=== PATIENT | female | born 1995 | race African-American/Black ===

== ENCOUNTER → 2017-09-28 07:32 | Outpatient (CLI) | payer OTHER, SELFPAY ==
[2017-09-28 08:27] LABS: Hematocrit 38.7 % (37-47); Hemoglobin 12.8 g/dl (12.0-15.0); Mean Corp Hgb Conc 33.1 g/gl (32-36); Mean Corpuscular Hgb 30.3 pg (27.0-32.0); Mean Corpuscular Volume 91.7 fL (81-99); Mean Platelet Vol. 11.2 fl (6.2-12.0); Platelet Count 304 K/mm3 (150-450); RBC Distribution Width CV 12.6 % (11.6-14.6); RBC Distribution Width SD 42.3 fl (35.1-43.9); Red Blood Count 4.22 M/mm3 (4.2-5.4); White Blood Count 8.1 K/mm3 (4.4-11.0)
[2017-09-28 08:28] LABS: Scan Indicated on CBC? Y/N NO
[2017-09-28 08:57] LABS: Hemoglobin A1c 5.6 % (4.2-6.3)
[2017-09-28 09:00] LABS: Glucose 75GTT - Fasting 98 mg/dL (70-99)
[2017-09-28 09:00] LABS: Glucose 75GTT - 30 minutes 149 mg/dL (100-160)
[2017-09-28 10:17] LABS: Glucose 75GTT - 60 minutes 147 mg/dL (100-160)
[2017-09-28 10:53] LABS: Glucose 75GTT - 120 minutes 106 mg/dL (70-140)
[2017-09-28 11:18] LABS: ALB/GLOB Ratio 0.8 RATIO (0.9-2.4); AST(SGOT) 15 U/L (15-37); Alanine Aminotransfer ALT/SGPT 25 U/L (13-56); Albumin, Serum 3.7 g/dL (3.2-5.0); Alkaline Phosphatase 99 U/L (45-117); Anion Gap 7 (5-15); BUN 12 mg/dL (7-18); BUN/Creat Ratio 13.5 RATIO (10-20); Calcium,Total 8.8 mg/dL (8.5-10.1); Chloride 106 mmol/L (98-107); Creatinine, Serum 0.89 mg/dL (0.55-1.02); EST Glomerular Filtration Rate 83 mL/min (>60); Est Glom Filt Rate - Afr Amer 100 mL/min (>60); Estradiol 34.6 pg/mL; Follicle Stimulating Hormone 5.8 mIU/mL; Free T3 3.4 pg/mL (2.18-3.98); Globulin 4.4 g/dL (2.2-4.2); Glucose 96 mg/dL (74-106); Potassium 3.9 mmol/L (3.5-5.1); Prolactin 16.4 ng/mL; Protein, Total 8.1 g/dL (6.4-8.2); Sodium Level 140 mmol/L (136-145); T4 Free Direct 1.04 ng/dL (0.76-1.46); Thyroid Stim Hormone (TSH) 2.97 uIU/mL (0.358-3.74)
[2017-09-29 05:08] LABS: DHEA Sulfate 238.9 ug/dL (110.0-431.7)
[2017-09-29 10:09] LABS: Progesterone Level 0.47 ng/mL (See Comment); Vitamin D,25 Hydroxy 27.2 ng/mL (29.95-100.01)
[2017-09-29 11:53] LABS: Sex Hormone-binding Globulin 19.6 nmol/L (24.6-122.0)
[2017-09-29 12:07] LABS: Insulin 75GTT - Fasting 19.5 mU/L (2.6-37.6)
[2017-09-29 12:08] LABS: Insulin 75GTT - 30 MIN 128.6 mU/L (Not Estab.)
[2017-09-29 12:08] LABS: Insulin 75GTT - 120 min 92.2 mU/L (Not Estab.)
[2017-10-01 08:04] LABS: 17-Hydroxyprogesterone 40 ng/dL (.)
[2017-10-02 14:07] LABS: Thyroid Peroxidase AB 12 IU/mL (0-34)
[2017-10-02 14:52] LABS: Thyroglobulin Antibody < 1.0 IU/mL (0.0-0.9)
== END ==
PROVIDERS: Visit Provider Obstetrics & Gynecology
DX: N97.0 Female infertility associated with anovulation (principal); N92.1 Excessive and frequent menstruation with irregular cycle
CPT/HCPCS: 36415; 80053; 82306; 82533; 82627; 82670; 82951; 82952; 83001; 83036; 83498; 83525; 84144; 84146; 84270; 84403; 84439; 84443; 84481; 85027; 86376; 86800; 82626

== ENCOUNTER → 2017-10-05 08:00 | Outpatient (CLI) | payer OTHER, SELFPAY ==
--- NOTE | 2017-10-05 08:03 | US_ITS ---
STUDY: ULTRASOUND OF THE FEMALE PELVIS - COMPLETE REASON FOR EXAM: Female, 22 years old. Irregular menstrual cycles. LMP: September 03, 2017. TECHNIQUE: Transabdominal and Transvaginal TECHNICAL QUALITY: Adequate. COMPARISON: None. FINDINGS: The uterus is anteverted and is tilted to the left side of the pelvis. The uterus measures 7.0 cm x 4.0 cm x 3.6 cm. Normal uterine cervix. The endometrium measures 10.0 mm in thickness, and is hyperechoic. There is no demonstrated endometrial mass. There is a 2.6 cm x 2.1 cm x 1.1 cm fundal fibroid. I.U.D. - The patient does not have an I.U.D. The right ovary is visualized. The right ovary measures 2.9 cm x 2.3 cm x 2.1 cm. There is no right ovarian cyst or ovarian mass. There is no visualized right adnexal mass or complex lesion. There is normal arterial and normal venous vascularity. The left ovary is visualized. The left ovary measures 4.0 cm x 3.0 cm x 2.5 cm. There is no left ovarian cyst or ovarian mass. There is no visualized left adnexal mass or complex lesion. There is normal arterial and normal venous vascularity. There is no fluid in the cul-de-sac. Polycystic ovary disease: No. US/Pelvic (Non ) IMPRESSION: 2.6 x 2.1 cm x 1.1 cm fundal fibroid. Electronically Signed: Amilcar Zuniga MD at 9:55 EDT Tel [phone], Service support ,
== END ==
PROVIDERS: Visit Provider Obstetrics & Gynecology
DX: N92.1 Excessive and frequent menstruation with irregular cycle (principal)
CPT/HCPCS: 76856; 93976

== ENCOUNTER → 2019-07-30 | Outpatient (CLI) | payer OTHER, SELFPAY ==
[2019-07-30 08:34] VITALS: BMI 36.8
[2019-08-02 16:49] LABS: HPV Reflexed? NOT INDICATED
== END | disposition home or self-care (01) ==
LOC: LABSPEC 15:32
PROVIDERS: Referring Provider Nurse Practitioner Women's Health; Visit Provider Nurse Practitioner Women's Health
DX: Z12.4 Encounter for screening for malignant neoplasm of cervix (principal)
CPT/HCPCS: 88175; G0145

== ENCOUNTER → 2019-08-28 | Outpatient (CLI) | payer OTHER, SELFPAY ==
[2019-07-30 08:34] VITALS: BMI 36.8
[2019-08-28 09:42] LABS: Estradiol 25.1 pg/mL; Prolactin 16.8 ng/mL; Thyroid Stim Hormone (TSH) 2.79 uIU/mL (0.358-3.74)
== END | disposition home or self-care (01) ==
LOC: PAVLAB 08:51
PROVIDERS: Referring Provider Nurse Practitioner Women's Health; Visit Provider Nurse Practitioner Women's Health
DX: N92.6 Irregular menstruation, unspecified (principal)
CPT/HCPCS: 36415; 82670; 84146; 84443

== ENCOUNTER → 2019-09-15 | Outpatient (CLI) | payer OTHER, SELFPAY ==
[2019-07-30 08:34] VITALS: BMI 36.8
[2019-09-16 09:55] LABS: Progesterone Level 0.55 ng/mL (See Comment)
== END | disposition home or self-care (01) ==
LOC: LAB 10:37
PROVIDERS: Visit Provider Nurse Practitioner Women's Health
DX: N92.6 Irregular menstruation, unspecified (principal)
CPT/HCPCS: 36415; 84144

== ENCOUNTER → 2019-09-17 | Outpatient (CLI) | payer OTHER, SELFPAY ==
[2019-07-30 08:34] VITALS: BMI 36.8
--- NOTE | 2019-09-17 13:50 | US_ITS ---
STUDY: ULTRASOUND OF THE FEMALE PELVIS - COMPLETE REASON FOR EXAM: Female, 24 years old. IRREGULAR MENSES FREQ AND DURATION LMP: August 23, 2019 TECHNIQUE: Transabdominal and Transvaginal TECHNICAL QUALITY: Adequate. COMPARISON: Comparison is made with prior study dated October 05, 2017. FINDINGS: The uterus is anteverted and is in a midline position. The uterus measures 7.2 cm x 3.8 cm x 3.6 cm. There is a Nabothian cyst of the cervix. The endometrium measures 6.8 mm in thickness, and is hyperechoic. There is no demonstrated endometrial mass. There is no demonstrated myometrial mass. I.U.D. - The patient does not have an I.U.D. The right ovary is visualized. The right ovary measures 2.9 cm x 3.1 cm x 3.3 cm. There is no right ovarian cyst or ovarian mass. There is no visualized right adnexal mass or complex lesion. There is normal arterial and normal venous vascularity. The left ovary is visualized. The left ovary measures 2.7 cm x 2.3 cm x 2.0 cm. There is no left ovarian cyst or ovarian mass. There is no visualized left adnexal mass or complex lesion. There is normal arterial and normal venous vascularity. There is no fluid in the cul-de-sac. The pre void volume of the bladder was 592 ml. Polycystic ovary disease: No. US/Pelvic (Non ) IMPRESSION: Normal female pelvis. Electronically Signed: Amilcar Zuniga, at 15:42 EDT , Service support ,
--- NOTE | 2019-09-17 13:50 | US_ITS ---
STUDY: ULTRASOUND OF THE FEMALE PELVIS - COMPLETE REASON FOR EXAM: Female, 24 years old. IRREGULAR MENSES FREQ AND DURATION LMP: August 23, 2019 TECHNIQUE: Transabdominal and Transvaginal TECHNICAL QUALITY: Adequate. COMPARISON: Comparison is made with prior study dated October 05, 2017. FINDINGS: The uterus is anteverted and is in a midline position. The uterus measures 7.2 cm x 3.8 cm x 3.6 cm. There is a Nabothian cyst of the cervix. The endometrium measures 6.8 mm in thickness, and is hyperechoic. There is no demonstrated endometrial mass. There is no demonstrated myometrial mass. I.U.D. - The patient does not have an I.U.D. The right ovary is visualized. The right ovary measures 2.9 cm x 3.1 cm x 3.3 cm. There is no right ovarian cyst or ovarian mass. There is no visualized right adnexal mass or complex lesion. There is normal arterial and normal venous vascularity. The left ovary is visualized. The left ovary measures 2.7 cm x 2.3 cm x 2.0 cm. There is no left ovarian cyst or ovarian mass. There is no visualized left adnexal mass or complex lesion. There is normal arterial and normal venous vascularity. There is no fluid in the cul-de-sac. The pre void volume of the bladder was 592 ml. Polycystic ovary disease: No. US/Transvaginal Non- IMPRESSION: Normal female pelvis. Electronically Signed: Amilcar Zuniga, at 15:42 EDT , Service support ,
== END | disposition home or self-care (01) ==
LOC: OPUS 13:50
PROVIDERS: Referring Provider Nurse Practitioner Women's Health; Visit Provider Nurse Practitioner Women's Health
DX: N92.6 Irregular menstruation, unspecified (principal); Z86.018 Personal history of other benign neoplasm
CPT/HCPCS: 76830; 76856

== ENCOUNTER → 2019-12-02 | Outpatient (CLI) | payer OTHER, SELFPAY ==
[2019-07-30 08:34] VITALS: BMI 36.8
== END | disposition home or self-care (01) ==
LOC: PAVLAB 08:40
PROVIDERS: Referring Provider Nurse Practitioner Women's Health; Visit Provider Nurse Practitioner Women's Health
DX: N91.2 Amenorrhea, unspecified (principal)
CPT/HCPCS: 36415; 84144

== ENCOUNTER → 2020-01-06 | Outpatient (CLI) | payer OTHER, SELFPAY ==
[2019-07-30 08:34] VITALS: BMI 36.8
== END | disposition home or self-care (01) ==
LOC: PAVLAB 08:20
PROVIDERS: Referring Provider Nurse Practitioner Women's Health; Visit Provider Nurse Practitioner Women's Health
DX: N92.6 Irregular menstruation, unspecified (principal)
CPT/HCPCS: 36415; 84144

== ENCOUNTER → 2020-01-15 12:07 | Outpatient (CLI) | payer OTHER, SELFPAY ==
[2019-07-30 08:34] VITALS: BMI 36.8
[2020-01-15 13:06] LABS: hCG Titer Quant., Serum 46 mIU/mL (1-3)
== END ==
PROVIDERS: Referring Provider Obstetrics & Gynecology; Visit Provider Obstetrics & Gynecology
DX: N92.1 Excessive and frequent menstruation with irregular cycle (principal)
CPT/HCPCS: 36415; 84702

== ENCOUNTER → 2020-01-17 | Outpatient (CLI) | payer OTHER, SELFPAY ==
[2019-07-30 08:34] VITALS: BMI 36.8
[2020-01-17 13:35] LABS: hCG Titer Quant., Serum 121 mIU/mL (1-3)
== END | disposition home or self-care (01) ==
PROVIDERS: Referring Provider Obstetrics & Gynecology; Visit Provider Obstetrics & Gynecology
DX: N91.2 Amenorrhea, unspecified (principal)
CPT/HCPCS: 36415; 84702

== ENCOUNTER → 2020-01-20 | Outpatient (CLI) | payer OTHER, SELFPAY ==
[2019-07-30 08:34] VITALS: BMI 36.8
[2020-01-20 10:17] LABS: hCG Titer Quant., Serum 533 mIU/mL (1-3)
== END | disposition home or self-care (01) ==
LOC: PAVLAB 09:10
PROVIDERS: Referring Provider Obstetrics & Gynecology; Visit Provider Obstetrics & Gynecology
DX: N91.2 Amenorrhea, unspecified (principal)
CPT/HCPCS: 36415; 84702

== ENCOUNTER 2020-10-15 14:17 | Inpatient (IN) | payer OTHER, SELFPAY ==
[2019-07-30 08:34] VITALS: BMI 36.8
[2020-10-15] VITALS (57 sets, daily range): BP systolic 96–187; BP diastolic 44–107; PULSE 99–124; RESP 16–18; TEMP 37.1–38.8; O2SAT 80–100; BMI 41.9
[2020-10-15] MEDS: Lactated Ringers 1,000 ML 50 ML IV (14:25)
[2020-10-15 14:48] LABS: Absolute Lymphocyte Count 1.62 X10^3/uL (0.83-4.51); Absolute Neutrophil Count 11.9 X10^3/uL (2.0-7.7); Basophil# 0.04 X10^3/uL; Basophil% 0.3 % (0-1); Eosinophil# 0.05 X10^3/uL; Eosinophils% 0.3 % (0-5); Hematocrit 42.1 % (37-47); Hemoglobin 14.6 g/dL (12.0-15.0); Lymphocyte # 1.62 X10^3/ul (0.83-4.51); Mean Corp Hgb Conc 34.7 g/dL (32-36); Mean Corpuscular Hgb 31.5 pg (27.0-32.0); Mean Corpuscular Volume 90.7 fL (81-99); Mean Platelet Vol. 11.8 fl (6.2-12.0); Monocyte# 1.04 X10^3/uL; Monocyte% 7.1 % (0-10); NRBC Flagged by Analyzer 0 % (0-5); Neutrophil # 11.88 X10^3/uL (2.7-7.7); Neutrophil % 80.6 % (47-70); Platelet Count 279 K/mm3 (150-450); RBC Distribution Width CV 12.1 % (11.6-14.6); RBC Distribution Width SD 39.9 fl (35.1-43.9); Red Blood Count 4.64 M/mm3 (4.2-5.4); White Blood Count 14.7 K/mm3 (4.4-11.0)
[2020-10-15 15:50] LABS: Mucous, Urine 0 SEEN /hpf (<or=2+); Red Blood Cells-Urine 0 SEEN /hpf (0-5); Squamous Epithelial Cells - UA 0 SEEN /hpf (5-10)
[2020-10-15 16:03] LABS: Color, Urine Yellow (Yellow); Glucose, Dipstick Normal (Normal); Ketone-Dipstick 5 mg/dl (Negative); Leukocyte Esterase-Dipstick 500 /ul (Negative); Nitrite-Dipstick Negative (Negative); Occult Blood-Urine 25 /ul (Negative); Protein-Dipstick Negative (Negative); Specific Gravity, Urine 1.015 (1.002-1.030); Urine Bilirubin Dipstick Negative (Negative); Urine Clarity Sl. Cloudy (Clear); Urine Urobilinogen Normal (Normal)
[2020-10-15 16:09] LABS: Bacteria RARE /hpf (None Seen); White Blood Cells 0-5 SEEN /hpf (0-5)
[2020-10-15 16:09] LABS: Fibrinogen 641 mg/dl (203-444)
[2020-10-15 16:42] LABS: Amphetamine Urine VISTA NEGATIVE (<1000 ng/mL); Barbiturate Urine VISTA NEGATIVE (< 200 ng/mL); Benzodiazepine Urine VISTA NEGATIVE (< 200 ng/mL); Cocaine Urine VISTA NEGATIVE (< 300 ng/mL); Ecstacy Urine VISTA NEGATIVE (< 500 ng/mL); Methadone Urine VISTA NEGATIVE (< 300 ng/mL); PCP Urine VISTA NEGATIVE (< 25 ng/mL); THC Urine VISTA NEGATIVE (< 50 ng/mL); Vista UDS pH Range 7
[2020-10-15 16:42] LABS: ALB/GLOB Ratio 0.6 RATIO (0.9-2.4); AST(SGOT) 18 U/L (15-37); Alanine Aminotransfer ALT/SGPT 13 U/L (13-56); Albumin, Serum 2.9 g/dL (3.2-5.0); Alkaline Phosphatase 171 U/L (45-117); Anion Gap 9 (5-15); BUN 6 mg/dL (7-18); BUN/Creat Ratio 9.4 RATIO (10-20); Calcium,Total 9.5 mg/dL (8.5-10.1); Chloride 106 mmol/L (98-107); Creatinine, Serum 0.64 mg/dL (0.55-1.02); EST Glomerular Filtration Rate 119 mL/min (>60); Est Glom Filt Rate - Afr Amer 144 mL/min (>60); Estimated Creatinine Clearance 123.61 ml/min; Globulin 4.9 g/dL (2.2-4.2); Glucose 85 mg/dL (74-106); Protein, Total 7.8 g/dL (6.4-8.2); Sodium Level 135 mmol/L (136-145); Thyroid Stim Hormone (TSH) 1.81 uIU/mL (0.358-3.74)
[2020-10-15 17:03] LABS: Group B Strep DNA By PCR Negative (Negative); Internal Control PASS; Probe Check PASS; Specimen Processing Control PASS
[2020-10-15 17:16] LABS: Rubella IgG Reactive (Nonreactive); Syphilis Antibodies Non-reactive
[2020-10-15 17:19] LABS: Hemoglobin A1c 5.6 % (3.8-5.6)
[2020-10-15 17:35] LABS: HIV - WCH Non-Reactive (Nonreactive); Hepatitis B Surface Antigen Non-Reactive (Nonreactive); Hepatitis C Antibody Non-Reactive (Nonreactive); Syphilis Antibodies Non-reactive
--- NOTE | 2020-10-15 17:40 | HP.PCM.OB_ITS ---
HPI - General General Date of Admission: 10/15/20 HPI Narrative ZULLY FINK, is a 25 F G1, P0 presents at 42 weeks as a transfer of care from a panel lay up worker Kay Radhafranck due to suspected breech presentation and thick meconium, upon evaluation infant was found to be vertex and patient was 7-8 cm dilated with very thick meconium and upon evaluation no heart rate was seen and no color Doppler flow was seen both over the heart and the brain. No gross movements were seen upon ultrasound examination. the patient had elevated blood pressures noted upon admission which her tangled yarn spool straightener states she has had throughout the but had not been treated or evaluated for this. Pat ient last bowel movement 2 days prior and membranes have been ruptured for 16 hours with intermittent labor for several days. Maternal Data Information NILA Calculator Estimated Delivery Date Method Current WG Current Estimate 10/01/20 Manual 42w 1d [facility] Medical History (Updated 10/16/20 @ 01:[address] Kaitlin Hardy MD) Asthma Infertility Home Medications 10/15/20 [History Last Taken Unknown] Allergy/AdvReac Type Severity Reaction Status Date / Time Latex, Natural Rubber AdvReac Severe hives and Verified 10/15/20 14:18 throat swells Surgical History History of appendectomy History of surgery [place] teeth extracted Social History (Updated 07/30/19 @ 09:10 by Rachell Escobar NP, NURSE EMERGENCY ROOM-C) number of children: 0 current occupational status: employed current occupation: [employer] Smoking Status: Never smoker alcohol intake: current alcohol intake frequency: holidays/special occasions only substance use type: does not use seatbelt use: always do you feel safe at home: Yes additional social history: [employer] History 1 Elective abortions Hx Para 0 Spontaneous abortions Hx # Term Pregnancies Ectopic pregnancies Hx # Pregnancies Multiple births # of living children Visit Details Expected Delivery Route/Plan NST FHR Rate Baby A Baseline: 0 Uterine Activity:: irregular Assessment Assessment Detail: No cardiac motion was confirmed on both visual, color Doppler, and M-mode ultrasound confirmation. No gross movements were seen. Blood flow was checked over the cranial and cardiac areas to confirm. ROS Constitutional Constitutional: Reports systems reviewed and no addt'l complaints, except as documented ENT HEENT: Reports systems reviewed and no addt'l complaints, except as documented Cardiovascular Cardiovascular: Reports systems reviewed and no addt'l complaints, except as documented Respiratory/Chest Respiratory/Chest: Reports systems reviewed and no addt'l complaints, except as documented Gastrointestinal Gastrointestinal: Reports systems reviewed and no addt'l complaints, except as documented and nausea; Denies abdominal pain Genitourinary Genitourinary: Reports systems reviewed and no addt'l complaints, except as documented, contractions Details: present and frequency (regular ) and movement Details: present Musculoskeletal Musculoskeletal: Reports systems reviewed and no addt'l complaints, except as documented Integumentary Integumentary: Reports as per HPI Neurologic Neurologic: Reports systems reviewed and no addt'l complaints, except as documented Endocrine Endocrinology: Reports systems reviewed and no addt'l complaints, except as documented Vital Signs Vital Signs Vital Signs: 10/15/20 14:22 10/15/20 14:50 10/15/20 15:28 Temperature 99.3 F H Temperature Source Oral Pulse Rate 115 H 109 H 109 H Blood Pressure 156/105 H 135/93 H BP Systolic 156 135 BP Diastolic 105 93 Pulse Ox 97 99 10/15/20 16:11 10/15/20 16:12 10/15/20 16:44 Temperature 99.1 F Temperature Source Oral Pulse Rate 111 H 111 H Blood Pressure 143/75 H BP Systolic 143 BP Diastolic 75 Pulse Ox 99 99 Weight Weight: 260 lb Body Mass Index (BMI) 41.9 Physical Exam Const alert, oriented x3 and healthy appearing Constitutional Narrative: uncomfortable with contractions HEENT normocephalic and moist oral mucous membranes Head and Scalp: atraumatic Neck full ROM, no lymphadenopathy, supple and thyroid normal General: trachea midline Thyroid: thyroid normal Lymph Lymphatic: no lymphadenopathy noted Chest inspection of chest normal Resp normal respiratory effort Cardio regular rate GI normal to inspection, nondistended, normoactive bowel sounds, soft to palpation and non-tender Inspection: gravid external exam normal Bimanual Exam - Vag & Uterus: uterus non-tender Manual OB Exam: estimated gestational size large, presentation cephalic, dilated 7.5, effaced 100, station 0 and other Extremity normal to inspection General Extremity: Negative for edema Skin no rashes or lesions noted Neuro deep tendon reflexes 2+ bilaterally Motor Exam: strength 5/5 throughout and clonus absent Psych mental status grossly normal Labs Labs Labs: Blood Type O POSITIVE Antibody Screen NEGATIVE Hct 42.1 % (37-47) Hgb 14.6 g/dL (12.0-15.0) Syphilis Total Ab Non-reactive Rubella IgG Antibody Reactive (Nonreactive) Hep Bs Antigen Non-Reactive (Nonreactive) HIV 1&2 Antibody Non-Reactive (Nonreactive) C.trachomatis DNA (PCR) Negative (Negative) Group B Strep DNA Negative (Negative) Assessment & Plan (1) : COMMENT: lay midwifery care Kay Fink, 42 week presentation with demise (2) demise, greater than 22 weeks, antepartum: (3) Preeclampsia, severe: COMMENT: suspected superimposed on chronic hypertension, given magnesium sulfate and labetalol PLAN: Patient requesting minimal intervention going forward so plan expectant management, discussed Pitocin per protocol if no cervical change. Hypertensive protocol started after developing severely elevated blood pressures. Offered epidural patient declined at this time
[2020-10-15] MEDS: fentaNYL 100 MCG/2 ML Ampul IV ×2 (18:05→20:20)
[2020-10-15] MEDS: Oxytocin 30 units/NS 500 ml 30 UNITS/500 ML IV.SOLN IV (18:07)
[2020-10-15] MEDS: Labetalol (Prefilled) 20 MG/4 ML IV (18:42)
[2020-10-15] MEDS: Magnesium Sulfate 4gm/100mL 4 GM/100 ML IV.SOLN. IV (18:44)
[2020-10-15] MEDS: Magnesium Sulfate 4gm/100mL 2 GM/50 ML IV.SOLN. IV (19:01)
[2020-10-15 19:08] LABS: Chlamydia Trachomatis by PCR Negative (Negative); Neisserai gonorrhoeae by PCR Negative (Negative); Probe Check PASS; Sample Adequacy Control PASS; Specimen Processing Control PASS
[2020-10-15] MEDS: Magnesium Sulfate 20 GM/500 ML BAG IV (19:14)
[2020-10-15] MEDS: Labetalol 100 MG Tablet PO (20:06)
[2020-10-15] MEDS: Lactated Ringers 500 ML 999 ML IV (21:42)
[2020-10-15] MEDS: Labetalol (Compound) 20 MG/4 ML SYRINGE IV (22:00)
[2020-10-15] MEDS: fentaNYL-bupivacaine (epidural) 100 ML BAG EPIDURAL (22:26)
[2020-10-16] VITALS (75 sets, daily range): BP systolic 86–154; BP diastolic 44–84; PULSE 90–133; RESP 16–23; TEMP 36.2–38.2; O2SAT 92–100
--- NOTE | 2020-10-16 | PLAC_PTH ---
PATIENT: ZULLY FINK LOC: [facility] U#:[id number] AGE/SX: ROOM: WP021 RE10/15/[address]: Dr. Kaitlin Hardy MD : 1995 BED: 1 DIS: 10/17/2020 SPEC #: [id number] RECD: 10/16/20 04:52 STATUS: GUANAKO AVILES #: [id number] EUSEBIA: 10/16/20 00:[address]: Kaitlin Hardy DEPT: SURGICAL PATHOLOGY RECD BY: Alonso De Oliveira ENTERED: 10/16/20 08:39 SP TYPE: PLACENTA OTHR DR: No Primary Care Phys Tissues: Placenta, NOS Procedures: Surgery Specimen Level V HEADER OPERATION: Primary section PRE-OP DIAGNOSIS: Labor and delivery TISSUE SUBMITTED: Placenta MICROSCOPIC DIAGNOSIS Placenta: Placental disc - third trimester placenta (820 gm). - Moderate acute vasculitis of subamniotic blood vessels. - Focal chronic villitis of unknown etiology. Membranes ? marked acute chorioamnionitis. -Pigment-laden macrophages consistent with meconium staining. Umbilical cord - three blood vessels and marked acute funisitis. SJ:vasquez 10/21/2020 MICROSCOPIC DESCRIPTION Slides are reviewed. GROSS DESCRIPTION SPECIMEN: PLACENTA / CLINICAL INFORMATION: A. Weight: Not noted B. Gestational Age: 42 weeks C. Sex: Female PLACENTAL WEIGHT (POST FIXATION): 820 gm PLACENTAL DIMENSIONS: 19 x 16 x 4.5 cm PLACENTAL SHAPE: Usual ovoid PLACENTAL WEIGHT FOR GESTATIONAL AGE: Over 99th percentile MEMBRANES - Present A. Insertion: Marginal B. Site of rupture from edge: 5 cm from edge of placental disc C. Color of membrane: Greenish, mucoidy, consistent with meconium staining D. Abnormalities: None UMBILICAL CORD - Present A. Color: Pérez-ryan B. Insertion: Central C. Length: 40 cm D. Diameter: 1.8 cm E. Number of vessels: Three F. Abnormalities: Greenish, consistent with meconium staining PLACENTAL DISC - Present A. Color of surface: Pérez-ryan B. surface abnormalities: None C. Maternal cotyledons: Intact with minimal tears D. Attached retro placental clot: No clot E. Cut surface: Dark red and spongy F. Lesions: None G. Separate clot: Absent SECTIONS SUBMITTED: 1. Membrane roll 2. Cord, maternal end 3. Cord, end 4. Placental disc, and maternal surfaces 5. Placental disc, and maternal surfaces 6. Placental disc, and maternal surfaces ASCENCION:vasquez 10/20/20 TC:2 CPT: 78059
--- NOTE | 2020-10-16 01:58 | PN_ITS ---
Progress Note Patient is status post epidural for several hours with intermittent level of comfort therefore Pitocin was initially low-dose until patient was comfortable and then it has been increased per protocol. Magnesium sulfate and labetalol for preeclampsia with severe features. Cervical exam is changed with contractions but appears to have swelling and regression of station. 8/70/-1 current tracing: [place]: Every 2 minute contractions A/P: Discussed with the patient would recommend allowing 4 hours of adequate contractions with Pitocin and if no adequate cervical change recommend proceeding with primary . Patient agreeable, will repeat exam in 1 hour and make decision for route of delivery.
--- NOTE | 2020-10-16 03:10 | EX.PCM.OBRPT ---
Assessment & Plan (1) Preeclampsia, severe: COMMENT: suspected superimposed on chronic hypertension, given magnesium sulfate and labetalol (2) : COMMENT: lay midwifery care Kay George, 42 week presentation with demise (3) demise, greater than 22 weeks, antepartum: (4) Arrest of dilation, delivered, current hospitalization: COMMENT: AOD 8 cm x 13 hours, 4 hours of adequate pitocin, ROM over 24 hours Maternal Data Information NILA Calculator Estimated Delivery Date Method Current WG Current Estimate 10/01/20 Manual 42w 1d Final NILA Source: LMP Details Operative Information Date of Procedure: 10/16/20 Pre-Operative Diagnosis: see above Post-Operative Diagnosis: same Indications for : Arrrest of Descent Procedure Type: low transverse hematology nurse educator #1: Liyah Beth Type of Anesthesia: Epidural Special Medications: sadia Antibiotic Given: Clindamycin 600mg IV x1 and Gentamicin 1.5mg/kg IV x1, Zithromax 500 mg/5 mL X1 and - (ampicillin) Drain: Blue to straight drain Estimated Blood Loss: 800 Fluids Replaced: crystalloid Findings Description of Procedure: The patient was placed in the dorsal supine position with leftward tilt. Patient was prepped and draped in the normal sterile fashion. Pfannenstiel skin incision was made with the scalpel and carried through to the underlying layer of fascia with the scalpel. Fascia was nicked in the midline and the incision extended laterally. The rectus bellies were dissected off superiorly and inferiorly with out complication both sharply and bluntly. The peritoneum was entered digitally. The incision was stretched and a low transverse uterine incision was made with the scalpel. The 's head was delivered atraumatically followed by the anterior and posterior shoulders without complication the rest of the delivered. Nuchal cord x1 was noted. The cord was clamped and cut and the infant was handed off to awaiting nurse. The placenta was delivered spontaneously immediately following and was noted to be intact and have a three-vessel cord. The uterus was exteriorized cleared of all clots and debris, severe endometrial staining was noted from the thick meconium which actually penetrated through the myometrium stiffening the myometrial wall. The incision was closed in a double layer closure using #1 Monocryl. The ovaries and fallopian tubes were noted to be within normal limits. The uterus was returned to the maternal abdomen and gutters were cleared of all clots and debris, abdomen was irrigated with saline. Sadia applied to the incision. The peritoneum was closed with 3-0 Monocryl in a running fashion. Gloves were changed prior to fascial closure. Fascia was closed with 0 PDS in a running fashion. Subcutaneous tissue was copiously irrigated and the skin was closed with 3-0 Monocryl in a subcuticular fashion. Mepilex dressing was applied without complication. Patient was taken to recovery in stable condition. It was discussed with the patient that based on the clinical information obtained during this encounter, combined with her history, at this time I would recommend vaginal or for future deliveries if further pregnancies are desired. Presentation: Positive for Vertex Amniotic Membrane Rupture Type: Spontaneous Amniotic Fluid Description: Thick meconium Placental Delivery Description: Spontaneous Placenta Disposition: [facility] Specimen(s) Sent to Pathology: yes Cord Vessel Description: 3 Vessels Cord Entanglement: None and Around neck x 1, loose Infant A Gender: Female (1 minute): 0 (5 minute): 0 Delayed Cord Clamping: No Complications Risks of Surgery Discussed w/Patient: Bleeding, Infection, Need for Future C-Sections and Injury to surrounding structure(s) including bowel and bladder Complications: none Vaginal Delivery Maternal Presentation Maternal Presentation: Active Labor Maternal Presentation: 25-year-old G1, P0 presented at 42 weeks with active labor and demise, preeclampsia with severe features. Thick meconium. Type of Induction: Pitocin Medical Reason for Induction: demise and Preeclampsia, eclampsia Admit VTE Documentation VTE Present on Admission: No VTE Mechan Device Prophylaxis: SCD's Procedures Urinary/Genital [id number]: 50049 delivery+ Care([facility])
[2020-10-16] MEDS: Carboprost Tromethamine 250 MCG/ML Ampul IM (03:35)
--- NOTE | 2020-10-16 04:06 | DCINST_ITS ---
Discharge Instructions Diet Discharge Diet: No restrictions Activity Discharge Activity: May Not Drive (for 2 weeks), May not drive while taking narcotic pain medications., May Shower and May Take a Tub Bath (in 7 days) May shower in (days): 0 May resume sexual activity in: 4-6 weeks Weight Bearing Status: Full weight bearing Lifting Restrictions: 20 pounds Dressing / Incision Call your doctor if your incision/area has: Continuous Slow Oozing, Sudden Increased Bleeding, Increased Pain/ Swelling, Increased Redness and Foul Smel ling Discharge Call your doctor if you observe: Fever of 101 or Higher and Using more than one pad per hour (for 2 hours) Suture Line Care: Avoid Pulling/Pushing and Avoid Pinching/Bending Cleanse incision/area with: Soap & Water and Keep Dressing Clean & Dry Follow Up Care Please Follow Up With: Kaitlin Hardy MD When: Call [phone] to make an appointment for an incision check in 1-2 weeks. Test Results: Test results from this visit will be discussed in further detail at your follow-up appointment, if applicable. Discharge Plan Admission Admit Date/Time: 10/15/20 14:17 Primary Reason for Your Visit: delivery Attending Provider: Kaitlin Hardy Primary Care Provider: Care Physician,No Primary Discharge Orders/Prescriptions Prescriptions: New naproxen 250 MG tablet 250 - 500 mg PO Q8H PRN PRN (Reason: MILD PAIN) Qty: 30 RF: 1 oxycodone-acetaminophen [Endocet] 5-325 mg tablet 1 tab PO Q4H PRN (Reason: pain) 7 Days Qty: 20 RF: 0 Continued [id number] 1 mg Tablet 1 tab PO DAILY RF: 0 Referrals / Follow Up: Care Physician,No Primary [Primary Care Provider] -
[2020-10-16] MEDS: Oxytocin 30 units/NS 500 ml 30 UNITS/500 ML IV.SOLN 167 UNITS IV (04:20)
[2020-10-16] MEDS: Magnesium Sulfate 20 GM/500 ML BAG IV (04:39)
[2020-10-16] MEDS: Lactated Ringers 1,000 ML 999 ML IV (04:42)
--- NOTE | 2020-10-16 04:50 | NURSING ---
Dr Beard aware of bp 79/43, mag off, bolus started. Dr Beard states to give fluid bolus and notify Andriyanthony.
--- NOTE | 2020-10-16 04:55 | NURSING ---
Dr Hardy called to update pt's condition in recovery, bp dropped to 79/43 bolus initiated & magnesium sulfate turned off, aware discussed with dr gonzalez, bp currently 91/55. States to give 1L LR bolus, leave mag off until bolus complete, restart if sbp>100, call if any increase in bleeding, or HR >130.
[2020-10-16] MEDS: Ketorolac 30 MG/ML Syringe IV ×4 (05:03→23:36)
--- NOTE | 2020-10-16 05:36 | NURSING ---
Pt remains drowsy, alert to name but falls asleep if not disturbed, resp easy, holden pad changed, lochia sm amt, pt able to assist with repositioning, 2lNC continues with sats 97%, family remains at bedside.
[2020-10-16] MEDS: Lactated Ringers 1,000 ML 100 ML IV (05:44)
[2020-10-16] MEDS: Acetaminophen 500 MG Tablet 1000 MG PO ×3 (06:12→18:59)
--- NOTE | 2020-10-16 06:40 | NURSING ---
Delivery time: 10/16/2020 at 0330. Wt; 5015 grams, 11#1oz Ht: 23 inches
[2020-10-16] MEDS: Lactated Ringers 500 ML IV.SOLN. IV (07:17)
--- NOTE | 2020-10-16 08:37 | NURSING ---
has a shabazz catheter.
[2020-10-16 09:19] LABS: Kleihauer-Betke Negative
[2020-10-16] MEDS: Enoxaparin 40 MG/0.4 ML Syringe SC (16:20)
[2020-10-16] MEDS: 0.9% Saline Lock 10 ML Syringe IV ×3 (17:49→23:37)
--- NOTE | 2020-10-16 18:23 | CASEMGMT ---
Social Work Brief Assessment Labor and Delivery Unit Patient Address: [address] [place] [address] Phone number: [phone] Date of Referral/Notification: 10/16/2020 Time of Referral: 622 Referred By: Dr. Singh Date of Intervention: 10/08/2020 Time of Intervention: 153 Reason for Referral: Grief/loss/bereavement Informant: Medical record and mother of baby (KALEN) Craig George History: Patient/mother of baby (KALEN) is a 25-year-old -Thai female, to the father of baby (FOB) Daniel George for the last 5 years. KALEN is 1, para 0 now 1 after delivering a 42-week postdate gestational baby girl via section. MOB reports to have a happy vibe and wanted to be able to deliver this baby completely natural at home. MOB reports that she and the FOB were trying for several years to get , trying various natural remedies for fertility before MOB sought input from local INTRAMURAL DIRECTOR's. MOB reports went to one OBGYN office and did not care for the advice, then spoke with Rachell Escobar and nurse practitioner at [facility]. MOB reports after taking Rachell's input MOB was within 2 months. care was then received by a track layer head, Gloria George who is also the MOB's gjrjru-yj-unu. MOB reports has been through loss before, but this is the first time for something this personal. No history of any antidepressant medications or counseling for the MOB. No reports of any domestic violence issues. Maternal drug screen negative on 10/15/2020. KALEN is gainfully employed at [employer]. The FOB reportedly works as a nuclear worker technician. Assessment: Met with the MOB in her room, introducing to self and social work role. Also present in the room was KALEN's [id number] and grill attendant Glorai George. MOB standing in room crying, but receptive to social work visit and agreeable to talk to social worker assistant. Offered condolences to MOB and Gloria. MOB reports the FOB had stepped out to go home, get a breather and shower. This contract writer talked to both women briefly together, and then alone with the MOB so as to allow some privacy in discussing current state of emotions. MOB agreeable to speaking with this contract writer privately. Gloria asked MOB prior to leaving the room if MOB okay talking to this contract writer alone. MOB voiced agreement. MOB talkative with social worker assistant. MOB affect overall was constricted, though cried and was able to laugh at an appropriate juncture in conversation. MOB reports understanding that she can have a wide range of emotions upon home-going. Discussed support system, and MOB indicated to have several good girlfriends who have already been to the home, picking up things and putting some of the baby stuff away that MOB did not want to see upon home-going. MOB reports that keeping busy helps MOB cope with anxiety and depression. Discussed with the MOB as to whether the MOB has been able to hold the baby and get the mementos that MOB would like to have prior to home-going. MOB reports was able to hold the baby, and would like to actually hold the baby again while the FOB is out of the hospital. MOB reports it was quite difficult for the FOB to see the baby. MOB also reports that would now like to have some pictures of the baby. Agreed to help facilitate with nursing MOB's requests, and encouragement given to MOB in accepting mementos that MOB feels comfortable with, as then at least MOB will have items and can look at items own MOB's own pace. MOB reports that she and the FOB had talked about the baby names, but it is quite difficult because none of the names they had considered for a little girl seem to fit this baby. Emotional support offered, and explored with the MOB that this may be something that the parents now decide on a completely new name that feels right for this baby. Allowed MOB time to discuss feelings and thoughts and reinforced that MOB has control of decision making on naming of baby. MOB is voicing to feel supported by both the FOB, and from her gawrcm-pl-ufz/grill attendant Gloria. MOB states to trust Gloria. Explored with the MOB as to whether there is anything else that [facility] staff can continue to do to support the MOB and family during this time. MOB indicates to feel supported. This contract writer provided the MOB with various information about grieving the loss of a baby, websites specifically for this topic. Additional information on depression, support lines and crisis lines available. Left to this contract writer's business card with contact information should the MOB have questions about information or require additional information after home-going. Updated nursing staff. Went to waiting room to get Gloria so could return to the MOB' room. Checked in on Gloria and how Gloria is doing. Gloria reports to be doing as well as can right now. Gloria informed this contract writer that Gloria is a grill attendant. This contract writer acknowledged awareness of Gloria's profession, but pointed out that this baby is also Gloria's grandbaby, so possibly a different experience for Gloria. Encouraged Gloria to self care as well. Plan: MOB will discharge home with the FOB. MOB indicates to have adequate support. No further needs requested or indicated at this time, however social work is available on 10/17/2020 should additional needs arise. -LILLIE Mckenna, POLICE DETECTIVE *Information documented in this assessment generated with [employer]*social Work
--- NOTE | 2020-10-16 19:48 | NURSING ---
Pharmacy called to discuss Lovenox according to medication scheduling guide. Pharmacy to adjust dosing and next dose to be given at 8am per pharmacy recommendations.
[2020-10-17] MEDS: Acetaminophen 500 MG Tablet 1000 MG PO ×2 (00:58→06:57)
[2020-10-17 02:30] VITALS: PULSE 88; RESP 16; O2SAT 95
[2020-10-17 02:35] VITALS: PULSE 88; O2SAT 93
[2020-10-17 04:35] VITALS: BP 140/80; PULSE 98; RESP 16; TEMP 36.7; O2SAT 96
[2020-10-17] MEDS: Naproxen 250 MG Tablet 500 MG PO (06:28)
[2020-10-17 06:40] LABS: Hemoglobin 10.6 g/dL (12.0-15.0); Mean Corp Hgb Conc 34.2 g/dL (32-36); Mean Corpuscular Volume 93.7 fL (81-99); Mean Platelet Vol. 11.5 fl (6.2-12.0); Platelet Count 207 K/mm3 (150-450); RBC Distribution Width CV 12.5 % (11.6-14.6); RBC Distribution Width SD 43.3 fl (35.1-43.9); Red Blood Count 3.31 M/mm3 (4.2-5.4); White Blood Count 18.4 K/mm3 (4.4-11.0)
--- NOTE | 2020-10-17 09:47 | PCM.PN.OB ---
Subjective Subjective Patient doing well without complaints. Tolerating PO. Ambulating and voiding without difficulty. Denies chest pain, shortness of breath, calf pain/swelling, fevers, chills, lightheadedness. Objective Data Objective Data Vital Signs: Vital Signs Temp Pulse Resp BP Pulse Ox 98.0 F 98 16 140/80 H 96 10/17/20 04:35 10/17/20 04:35 10/17/20 04:35 10/17/20 04:35 10/17/20 04:35 Oxygen Flow Rate (L/min) 2 Oxygen Delivery Method Room Air Weight: 260 lb Body Mass Index (BMI) 41.9 Intake & Output: Intake and Output for Last 24 Hours 10/15/20 10/16/20 10/17/20 23:59 23:59 23:59 Intake Total 1471.10 / 1471.10 4884.31 / 4884.31 Output Total 3300 / 3300 Balance 1471.10 / 1471.10 1584.31 / 1584.31 Lab / Micro Data Result Diagrams: 10/17/20 06:30 10/15/20 15:25 Labs: Laboratory Results - last 24 hr 10/17/20 06:30 WBC 18.4 H RBC 3.31 L Hgb 10.6 L Hct 31.0 L MCV 93.7 MCH 32.0 MCHC 34.2 RDW Std Deviation 43.3 RDW Coeff of Armani 12.5 Plt Count 207 MPV 11.5 ROS Constitutional Constitutional: Denies fever(s) Cardiovascular Cardiovascular: Denies chest pain, dyspnea or lightheadedness Gastrointestinal Gastrointestinal: Reports abdominal pain; Denies constipation or diarrhea Neurologic Neurologic: Denies dizziness or headache(s) Physical Exam Const alert, oriented x3, no apparent distress, average body habitus, healthy appearing and well nourished HEENT normocephalic Head and Scalp: atraumatic Eyes PERRL and EOMs intact bilaterally Neck full ROM Lymph Lymphatic: no lymphadenopathy noted Resp normal respiratory effort, no retractions and no use of accessory muscles Cardio regular rate GI soft to palpation, non-tender and non-distended Inspection: incision intact and other (dressing in place) Palpation: other Other Details: fundus firm Extremity normal to inspection and no clubbing, cyanosis or edema Skin no rashes or lesions noted Neuro no focal motor deficits and no sensory deficits noted Psych mental status grossly normal, affect normal and speech normal Assessment & Plan (1) delivery delivered: COMMENT: 42 week demise, postmaturity, 11 lb girl, SM, LTCS for AOD 8 cm, severe preeclampsia PLAN: s/p LTCS PPD # 2 1. routine post care 2. breast feeding- support given 3. rh positive 4. rubella immune 5. PreEwSF - BPs low to mild range since delivery, no further severe BPs, given IUFD plan DC to home today with BP check next week
[2020-10-17] MEDS: Enoxaparin 40 MG/0.4 ML Syringe SC (10:06)
[2020-10-17] MEDS: Senna/Docusate Sodium 1 Tablet PO (10:36)
--- NOTE | 2020-10-17 11:35 | NURSING ---
Pt. reports passing gas, d/c inst. given and pt. readying for d/c to home.
[2020-10-17 11:41] VITALS: BP 135/82; PULSE 93; RESP 18; TEMP 37.1; O2SAT 95
[2020-10-17 17:32] LABS: Anti-Cardiolipin Ab, IgA, Qn < 9 APL U/mL (0-11); Anti-Cardiolipin Ab, IgG, Qn < 9 GPL U/mL (0-14); Anti-Cardiolipin Ab, IgM, Qn 10 MPL U/mL (0-12)
--- NOTE | 2020-10-17 18:49 | CASEMGMT ---
KELSI Note Referral Source : Distribution Technician Referral Reason: Demise KELSI called Katie Yates () to check on patient related to demise. KELSI spoke to Cierra and she said that she would speak to the RN and call this development writer back. KELSI received call from Cierra. She said that the assigned RN said that patient is doing well and no social work needs are noted. Plan: Discharge Brittanie MOREIRA
[2020-10-18 19:52] LABS: Pathology Specimen OB SEE PATHOLOGY REPORT
[2020-10-20 20:07] LABS: PTT-LA 55.2 sec (0.0-51.9); PTT-LA Incub Mix 43.8 sec (0.0-48.9); PTT-LA Mix 42.3 sec (0.0-48.9); Thrombin Time 17.9 sec (0.0-23.0); dPT Confirm Ratio 1.46 Ratio (0.00-1.40)
[2020-10-21 10:17] LABS: Interpretation Comment: (.)
== END 2020-10-17 11:45 | disposition home or self-care (01) | DRG 787 ==
PROVIDERS: Admitting Provider Obstetrics & Gynecology; Visit Provider Obstetrics & Gynecology
DX: O61.0 Failed medical induction of labor (principal); O36.4XX0 Maternal care for intrauterine death, not applicable or unspecified; O14.14 Severe pre-eclampsia complicating childbirth; O77.0 Labor and delivery complicated by meconium in amniotic fluid; O69.81X0 Labor and delivery complicated by cord around neck, without compression, not applicable or unspecified; O99.214 Obesity complicating childbirth; E66.01 Morbid (severe) obesity due to excess calories; Z3A.42 42 weeks gestation of pregnancy; Z37.1 Single stillbirth
CPT/HCPCS: 59050; 76815; 80053; 80307; 81001; 83036; 84443; 85025; 85027; 85384; 85460; 86147; 86703; 86762; 86780; 86803; 86850; 86900; 86901; 87081; 87086; 87088; 87340; 87491; 87591; 87653; 88307; 99218; J7120; A4216; G0378; J2405

== ENCOUNTER → 2020-10-30 09:13 | Outpatient (CLI) | payer OTHER, SELFPAY ==
[2020-10-30 08:40] VITALS: BMI 41.9
[2020-10-30 09:26] LABS: Absolute Lymphocyte Count 1.35 X10^3/uL (0.83-4.51); Absolute Neutrophil Count 4.1 X10^3/uL (2.0-7.7); Basophil# 0.04 X10^3/uL; Basophil% 0.7 % (0-1); Eosinophil# 0.17 X10^3/uL; Eosinophils% 2.8 % (0-5); Hematocrit 41.8 % (37-47); Hemoglobin 14.2 g/dL (12.0-15.0); Lymphocyte # 1.35 X10^3/ul (0.83-4.51); Lymphocyte % 22.1 % (19-41); Mean Corpuscular Volume 91.3 fL (81-99); Mean Platelet Vol. 10.2 fl (6.2-12.0); Monocyte# 0.42 X10^3/uL; Monocyte% 6.9 % (0-10); NRBC Flagged by Analyzer 0 % (0-5); Neutrophil # 4.12 X10^3/uL (2.7-7.7); Neutrophil % 67.2 % (47-70); Platelet Count 478 K/mm3 (150-450); RBC Distribution Width CV 11.6 % (11.6-14.6); RBC Distribution Width SD 38.5 fl (35.1-43.9); Red Blood Count 4.58 M/mm3 (4.2-5.4); White Blood Count 6.1 K/mm3 (4.4-11.0)
[2020-10-30 09:44] LABS: ALB/GLOB Ratio 0.8 RATIO (0.9-2.4); AST(SGOT) 16 U/L (15-37); Alanine Aminotransfer ALT/SGPT 18 U/L (13-56); Albumin, Serum 3.7 g/dL (3.2-5.0); Alkaline Phosphatase 123 U/L (45-117); Anion Gap 6 (5-15); BUN 12 mg/dL (7-18); BUN/Creat Ratio 13.5 RATIO (10-20); Calcium,Total 9.7 mg/dL (8.5-10.1); Chloride 105 mmol/L (98-107); Creatinine, Serum 0.89 mg/dL (0.55-1.02); EST Glomerular Filtration Rate 81 mL/min (>60); Est Glom Filt Rate - Afr Amer 98 mL/min (>60); Globulin 4.5 g/dL (2.2-4.2); Glucose 107 mg/dL (74-106); Potassium 4.1 mmol/L (3.5-5.1); Protein, Total 8.2 g/dL (6.4-8.2); Sodium Level 138 mmol/L (136-145)
== END ==
PROVIDERS: Referring Provider Obstetrics & Gynecology; Visit Provider Obstetrics & Gynecology
DX: I10 Essential (primary) hypertension (principal)
CPT/HCPCS: 36415; 80053; 85025

== ENCOUNTER → 2020-12-01 15:39 | Outpatient (CLI) | payer OTHER, SELFPAY ==
[2020-12-01 15:01] VITALS: BMI 41.9
[2020-12-01 15:59] LABS: Absolute Lymphocyte Count 2.37 X10^3/uL (0.83-4.51); Absolute Neutrophil Count 3.7 X10^3/uL (2.0-7.7); Basophil# 0.04 X10^3/uL; Basophil% 0.6 % (0-1); Eosinophils% 2.9 % (0-5); Hematocrit 40.6 % (37-47); Hemoglobin 13.8 g/dL (12.0-15.0); Lymphocyte # 2.37 X10^3/ul (0.83-4.51); Lymphocyte % 34.4 % (19-41); Mean Corpuscular Hgb 30.9 pg (27.0-32.0); Mean Platelet Vol. 11.1 fl (6.2-12.0); Monocyte# 0.54 X10^3/uL; Monocyte% 7.8 % (0-10); NRBC Flagged by Analyzer 0 % (0-5); Neutrophil # 3.72 X10^3/uL (2.7-7.7); Neutrophil % 54.2 % (47-70); Platelet Count 327 K/mm3 (150-450); RBC Distribution Width CV 11.9 % (11.6-14.6); RBC Distribution Width SD 39.8 fl (35.1-43.9); Red Blood Count 4.46 M/mm3 (4.2-5.4); White Blood Count 6.9 K/mm3 (4.4-11.0)
[2020-12-01 16:20] LABS: AST(SGOT) 21 U/L (15-37); Alanine Aminotransfer ALT/SGPT 31 U/L (13-56); Alkaline Phosphatase 96 U/L (45-117); Anion Gap 4 (5-15); BUN 9 mg/dL (7-18); BUN/Creat Ratio 10.1 RATIO (10-20); Calcium,Total 9.5 mg/dL (8.5-10.1); Chloride 103 mmol/L (98-107); Creatinine, Serum 0.89 mg/dL (0.55-1.02); EST Glomerular Filtration Rate 81 mL/min (>60); Est Glom Filt Rate - Afr Amer 98 mL/min (>60); Globulin 4.1 g/dL (2.2-4.2); Glucose 90 mg/dL (74-106); Potassium 3.9 mmol/L (3.5-5.1); Protein, Total 8.1 g/dL (6.4-8.2); Sodium Level 135 mmol/L (136-145); T4 Free Direct 0.96 ng/dL (0.76-1.46); Thyroid Stim Hormone (TSH) 1.44 uIU/mL (0.358-3.74)
== END ==
PROVIDERS: Referring Provider Obstetrics & Gynecology; Visit Provider Obstetrics & Gynecology
DX: I10 Essential (primary) hypertension (principal); E01.0 Iodine-deficiency related diffuse (endemic) goiter
CPT/HCPCS: 36415; 80053; 84439; 84443; 85025

== ENCOUNTER → 2020-12-04 14:34 | Outpatient (CLI) | payer OTHER, SELFPAY ==
[2020-12-01 15:01] VITALS: BMI 41.9
--- NOTE | 2020-12-04 14:36 | US_ITS ---
STUDY: THYROID ULTRASOUND REASON FOR EXAM: Female, 25 years old. Thyromegaly TECHNIQUE: Ultrasound evaluation of the thyroid was performed with real-time and static ryan-scale imaging. COMPARISON: None. FINDINGS: RIGHT LOBE: The right lobe of the thyroid gland is enlarged and measures 5.3 cm x 2.1 cm x 1.5 cm. There is a homogeneous echotexture. There is a 7 mm x 5 mm x 4 mm cyst in the upper pole. There is also evidence of a 4 mm x 3 mm x 2 mm cyst in the midpole. LEFT LOBE: The left lobe of the thyroid gland is slightly enlarged and measures 5.1 cm x 2 cm x 1.3 cm. cm. There is a homogeneous echotexture. There is a 6 mm x 4 mm x 3 mm cyst. There is also evidence of a 6 mm x 5 mm x 4 mm hypoechoic solid nodule. ISTHMUS: The isthmus measures 3 mm. The regional lymph nodes are normal. US/Thyroid IMPRESSION: There are 2 small cysts in the right lobe. Subcentimeter cyst in the left lobe as well as a subcentimeter hypoechoic solid nodule in the left lobe. Electronically Signed: Amilcar Zuniga MD at 20:13 EDT , Service support ,
== END ==
PROVIDERS: Referring Provider Obstetrics & Gynecology; Visit Provider Obstetrics & Gynecology
DX: I10 Essential (primary) hypertension (principal); E01.0 Iodine-deficiency related diffuse (endemic) goiter
CPT/HCPCS: 76536

== ENCOUNTER → 2021-02-01 12:27 | Outpatient (CLI) | payer OTHER, SELFPAY ==
[2021-02-05 03:07] LABS: Dilute Prothrombin Time (dPT) 29.2 sec (0.0-55.0); PTT-LA 53.7 sec (0.0-51.9); PTT-LA Incub Mix 44.6 sec (0.0-48.9); PTT-LA Mix 45.9 sec (0.0-48.9); Thrombin Time 16.7 sec (0.0-23.0); dPT Confirm Ratio 1.15 Ratio (0.00-1.40)
[2021-02-05 08:34] LABS: Anti-Cardiolipin Ab, IgA, Qn < 9 APL U/mL (0-11); Anti-Cardiolipin Ab, IgG, Qn < 9 GPL U/mL (0-14); Anti-Cardiolipin Ab, IgM, Qn 10 MPL U/mL (0-12); Beta-2-Glycoprotein I IgA <9 (0-25); Beta-2-Glycoprotein I IgG <9 (0-20); Beta-2-Glycoprotein I IgM <9 (0-32); Interpretation Comment: (.)
== END ==
PROVIDERS: Referring Provider Obstetrics & Gynecology; Visit Provider Obstetrics & Gynecology
DX: N96 Recurrent pregnancy loss (principal)
CPT/HCPCS: 36415; 86146; 86147

== ENCOUNTER 2021-07-30 12:11 | Outpatient (CLI) | payer OTHER, SELFPAY ==
[2021-07-30 15:58] LABS: hCG Titer Quant., Serum 27 mIU/mL (1-3)
== END 2021-07-30 23:59 | disposition home or self-care (01) ==
LOC: MTLAB 12:12
PROVIDERS: PCP Student in an Organized Health Care Education/Training Program; Referring Provider Obstetrics & Gynecology; Visit Provider Obstetrics & Gynecology
DX: N92.6 Irregular menstruation, unspecified (principal)
CPT/HCPCS: 36415; 84702

== ENCOUNTER 2021-08-01 11:06 | Outpatient (CLI) | payer OTHER, SELFPAY ==
[2021-08-01 11:56] LABS: hCG Titer Quant., Serum 89 mIU/mL (1-3)
== END 2021-08-01 23:59 | disposition home or self-care (01) ==
LOC: LAB 11:07
PROVIDERS: PCP Student in an Organized Health Care Education/Training Program; Visit Provider Obstetrics & Gynecology
DX: N92.6 Irregular menstruation, unspecified (principal)
CPT/HCPCS: 84702

== ENCOUNTER → 2021-09-09 | Outpatient (CLI) | payer OTHER, SELFPAY ==
[2021-09-09 11:39] LABS: Amphetamine Urine VISTA NEGATIVE (<1000 ng/mL); Barbiturate Urine VISTA NEGATIVE (< 200 ng/mL); Benzodiazepine Urine VISTA NEGATIVE (< 200 ng/mL); Cocaine Urine VISTA NEGATIVE (< 300 ng/mL); Ecstacy Urine VISTA NEGATIVE (< 500 ng/mL); Methadone Urine VISTA NEGATIVE (< 300 ng/mL); PCP Urine VISTA NEGATIVE (< 25 ng/mL); THC Urine VISTA NEGATIVE (< 50 ng/mL); Vista UDS pH Range 6
[2021-09-09 11:41] LABS: Protein, Urine (Random) 18.2 mg/dL (<11.9); Protein:Creat Ratio 126 mg/g CRE (0-200)
[2021-09-11 11:08] LABS: Chlamydia By Nucleic Acid AMP Negative (Negative)
[2021-09-11 11:25] LABS: Gonococcus By Nucleic Acid AMP Negative (Negative)
== END | disposition home or self-care (01) ==
LOC: LABSPEC 13:04
PROVIDERS: PCP Student in an Organized Health Care Education/Training Program; Referring Provider Obstetrics & Gynecology; Visit Provider Obstetrics & Gynecology
DX: O14.10 Severe pre-eclampsia, unspecified trimester (principal)
CPT/HCPCS: 80307; 82570; 84156; 87086; 87088; 87491; 87591

== ENCOUNTER → 2021-09-16 | Outpatient (CLI) | payer OTHER, SELFPAY ==
[2021-09-16 15:48] LABS: Absolute Lymphocyte Count 1.98 X10^3/uL (0.83-4.51); Absolute Neutrophil Count 6.2 X10^3/uL (2.0-7.7); Basophil# 0.02 X10^3/uL; Basophil% 0.2 % (0-1); Eosinophil# 0.21 X10^3/uL; Eosinophils% 2.3 % (0-5); Hemoglobin 13.6 g/dL (12.0-15.0); Lymphocyte # 1.98 X10^3/ul (0.83-4.51); Lymphocyte % 21.8 % (19-41); Mean Corp Hgb Conc 34.9 g/dL (32-36); Mean Corpuscular Hgb 32.6 pg (27.0-32.0); Mean Corpuscular Volume 93.5 fL (81-99); Mean Platelet Vol. 12.5 fl (6.2-12.0); Monocyte# 0.61 X10^3/uL; Monocyte% 6.7 % (0-10); NRBC Flagged by Analyzer 0 % (0-5); Neutrophil # 6.21 X10^3/uL (2.7-7.7); Neutrophil % 68.6 % (47-70); Platelet Count 221 K/mm3 (150-450); RBC Distribution Width CV 12.4 % (11.6-14.6); RBC Distribution Width SD 42.6 fl (35.1-43.9); Red Blood Count 4.17 M/mm3 (4.2-5.4); White Blood Count 9.1 K/mm3 (4.4-11.0)
[2021-09-16 16:08] LABS: ALB/GLOB Ratio 0.8 RATIO (0.9-2.4); AST(SGOT) 13 U/L (15-37); Alanine Aminotransfer ALT/SGPT 25 U/L (13-56); Albumin, Serum 3.2 g/dL (3.2-5.0); Alkaline Phosphatase 49 U/L (45-117); Anion Gap 5 (5-15); BUN 8 mg/dL (7-18); BUN/Creat Ratio 11.9 RATIO (10-20); Calcium,Total 9.2 mg/dL (8.5-10.1); Chloride 107 mmol/L (98-107); Creatinine, Serum 0.67 mg/dL (0.55-1.02); EST Glomerular Filtration Rate 111 mL/min (>60); Est Glom Filt Rate - Afr Amer 134 mL/min (>60); Glucose 122 mg/dL (74-106); Glucose Challenge Gest 1H 50g 122 mg/dL (70-140); Potassium 3.7 mmol/L (3.5-5.1); Protein, Total 7.2 g/dL (6.4-8.2); Sodium Level 137 mmol/L (136-145); T4 Free Direct 0.95 ng/dL (0.76-1.46); Thyroid Stim Hormone (TSH) 1.01 uIU/mL (0.358-3.74)
[2021-09-17 09:28] LABS: HIV - WCH Non-Reactive (Nonreactive); Hepatitis B Surface Antigen Non-Reactive (Nonreactive); Hepatitis C Antibody Non-Reactive (Nonreactive); Rubella IgG Reactive (Nonreactive); Syphilis Antibodies Non-reactive
== END | disposition home or self-care (01) ==
PROVIDERS: PCP Student in an Organized Health Care Education/Training Program; Referring Provider Obstetrics & Gynecology; Visit Provider Obstetrics & Gynecology
DX: O14.10 Severe pre-eclampsia, unspecified trimester (principal)
CPT/HCPCS: 80053; 82950; 84439; 84443; 85025; 86703; 86762; 86780; 86803; 86850; 86900; 86901; 87340

== ENCOUNTER → 2021-12-31 | Outpatient (CLI) | payer OTHER, SELFPAY ==
[2021-12-31 09:15] LABS: Absolute Lymphocyte Count 1.95 X10^3/uL (0.83-4.51); Absolute Neutrophil Count 8.2 X10^3/uL (2.0-7.7); Basophil# 0.04 X10^3/uL; Basophil% 0.4 % (0-1); Eosinophil# 0.15 X10^3/uL; Eosinophils% 1.4 % (0-5); Hemoglobin 13.8 g/dL (12.0-15.0); Lymphocyte # 1.95 X10^3/ul (0.83-4.51); Lymphocyte % 17.6 % (19-41); Mean Corp Hgb Conc 34.5 g/dL (32-36); Mean Corpuscular Hgb 33.3 pg (27.0-32.0); Mean Corpuscular Volume 96.6 fL (81-99); Mean Platelet Vol. 11.4 fl (6.2-12.0); Monocyte# 0.58 X10^3/uL; Monocyte% 5.2 % (0-10); NRBC Flagged by Analyzer 0 % (0-5); Platelet Count 234 K/mm3 (150-450); RBC Distribution Width CV 12.5 % (11.6-14.6); RBC Distribution Width SD 43.8 fl (35.1-43.9); Red Blood Count 4.14 M/mm3 (4.2-5.4); White Blood Count 11.1 K/mm3 (4.4-11.0)
[2021-12-31 09:38] LABS: Glucose Challenge Gest 1H 50g 193 mg/dL (70-140)
== END | disposition home or self-care (01) ==
LOC: LAB 08:32
PROVIDERS: PCP Student in an Organized Health Care Education/Training Program; Referring Provider Obstetrics & Gynecology; Visit Provider Obstetrics & Gynecology
DX: Z34.90 Encounter for supervision of normal pregnancy, unspecified, unspecified trimester (principal)
CPT/HCPCS: 36415; 82950; 85025

== ENCOUNTER → 2022-01-12 | Outpatient (CLI) | payer OTHER, SELFPAY ==
--- NOTE | 2022-01-12 12:39 | US_ITS ---
STUDY: THYROID ULTRASOUND REASON FOR EXAM: Female, 26 years old. Thyromegaly. TECHNIQUE: Ultrasound evaluation of the thyroid was performed with real-time and static ryan-scale imaging. COMPARISON: Comparison is made with prior study dated 12/04/2020. FINDINGS: RIGHT LOBE: The right lobe of the thyroid gland is enlarged and measures 5 cm x 2.3 cm x 1.3 cm. There is a homogeneous echotexture. There is a 5 mm x 4 mm x 2 mm cyst in the upper pole. There is also evidence of a 4 mm x 3 mm x 2 mm cyst in the midpole. These are unchanged. LEFT LOBE: The left lobe of the thyroid gland is mildly enlarged and measures 4.9 cm x 2.1 cm x 1.1 cm. There is a homogeneous echotexture. There is a 6 mm x 4 mm x 2 mm cyst in the midpole. Adjacent to this, there is a 5 mm x 4 mm x 5 mm well-defined hypoechoic solid nodule. There has been no change. ISTHMUS: The isthmus measures 2.8 mm. The regional lymph nodes are normal. US/Thyroid IMPRESSION: Mild degree of thyromegaly. Stable bilateral thyroid nodules. Electronically Signed: Amilcar Zuniga MD at 10:53 EDT ,
== END | disposition home or self-care (01) ==
LOC: US 12:38
PROVIDERS: PCP Student in an Organized Health Care Education/Training Program; Referring Provider Surgery; Visit Provider Surgery
DX: E01.0 Iodine-deficiency related diffuse (endemic) goiter (principal)
CPT/HCPCS: 76536

== ENCOUNTER → 2022-01-19 | Outpatient (CLI) | payer OTHER, SELFPAY | END | disposition home or self-care (01) | LOC: LABSPEC 13:27 | PROVIDERS: PCP Student in an Organized Health Care Education/Training Program; Visit Provider Obstetrics & Gynecology | DX: O26.899 Other specified pregnancy related conditions, unspecified trimester (principal); R30.0 Dysuria; R10.2 Pelvic and perineal pain | CPT/HCPCS: 87070; 87086; 87088; 87205 ==

== ENCOUNTER → 2022-02-28 | Outpatient (CLI) | payer OTHER, SELFPAY ==
--- NOTE | 2022-02-28 08:19 | US_ITS ---
STUDY: OBSTETRICAL ULTRASOUND - BIOPHYSICAL PROFILE REASON FOR EXAM: Female, 26 years old well being -- 32 weeks LMP: 07/03/2021. PRIOR ULTRASOUND: None. TECHNIQUE: Transabdominal TECHNICAL QUALITY: Adequate. FINDINGS: There is a single intrauterine fetus. The fetus is in a cephalic presentation. There is demonstrated cardiac activity with a heart rate of 145 bpm. There is a normal amniotic fluid volume. The largest amniotic fluid pocket measures 5.4 cm x 10.1 cm. The amniotic fluid index (NEVILLE) is 18.1 cm. The placenta is posterior in location and is not low lying. There are Grade 1 placental changes. Age by LMP: 34 weeks, 2 days. NILA by LMP: 04/09/2022. BIOPHYSICAL PROFILE: Breathing Movements (FBM): 2 Gross Body Movements (GBM): 2 Tone (FT): 2 Amniotic Fluid Volume (AFV): 2 TOTAL SCORE: US/Biophysical Prof W/O Non Stres IMPRESSION: Normal biophysical profile of 12/27. Electronically Signed: Amilcar Zuniga MD at 13:31 EDT ,
== END | disposition home or self-care (01) ==
PROVIDERS: PCP Student in an Organized Health Care Education/Training Program; Referring Provider Nurse Practitioner Women's Health; Visit Provider Nurse Practitioner Women's Health
DX: I10 Essential (primary) hypertension (principal)
CPT/HCPCS: 76819

== ENCOUNTER → 2022-03-04 | Outpatient (CLI) | payer OTHER, SELFPAY ==
--- NOTE | 2022-03-04 07:40 | US_ITS ---
STUDY: OBSTETRICAL ULTRASOUND - BIOPHYSICAL PROFILE REASON FOR EXAM: Female, 26 years old well being -- 33 weeks -- HX OF GESTATIONAL DIABETES -- OBESITY, CHRONIC HYPERTENSION LMP: 07/03/2021 PRIOR ULTRASOUND: Comparison is made with prior examination dated 02/29/2020. TECHNIQUE: Transabdominal TECHNICAL QUALITY: Adequate. FINDINGS: There is a single intrauterine fetus. The fetus is in a cephalic presentation. There is demonstrated cardiac activity with a heart rate of 153 bpm. There is a normal amniotic fluid volume. The largest amniotic fluid pocket measures 6.5 cm x 10.3 cm. The amniotic fluid index (NEVILLE) is 17.3 cm. The placenta is posterior in location and is not low lying. There are Grade 1 placental changes. Age by LMP: 34 weeks, 6 days. NILA by LMP: 04/09/2022. BIOPHYSICAL PROFILE: Breathing Movements (FBM): 2 Gross Body Movements (GBM): 2 Tone (FT): 2 Amniotic Fluid Volume (AFV): 2 TOTAL SCORE: 8 / 8 US/Biophysical Prof W/O Non Stres IMPRESSION: Normal biophysical profile of 12/27. Electronically Signed: Amilcar Zuniga MD at 15:07 EDT ,
== END | disposition home or self-care (01) ==
LOC: US 07:40
PROVIDERS: PCP Student in an Organized Health Care Education/Training Program; Referring Provider Nurse Practitioner Women's Health; Visit Provider Nurse Practitioner Women's Health
DX: O99.210 Obesity complicating pregnancy, unspecified trimester (principal); O16.9 Unspecified maternal hypertension, unspecified trimester
CPT/HCPCS: 76819

== ENCOUNTER → 2022-03-07 | Outpatient (CLI) | payer OTHER, SELFPAY ==
--- NOTE | 2022-03-07 10:06 | US_ITS ---
STUDY: OBSTETRICAL ULTRASOUND - BIOPHYSICAL PROFILE REASON FOR EXAM: Female, 26 years old well being -- 34 weeks LMP: 07/03/2021. PRIOR ULTRASOUND: Comparison is made with prior sonogram done 03/04/2022. TECHNIQUE: Transabdominal TECHNICAL QUALITY: Adequate. FINDINGS: There is a single intrauterine fetus. The fetus is in a cephalic presentation. There is demonstrated cardiac activity with a heart rate of 140 bpm. There is a normal amniotic fluid volume. The largest amniotic fluid pocket measures 6.1 cm x 9 cm. The amniotic fluid index (NEVILLE) is 16.92 cm. The placenta is posterior in location and is not low lying. There are Grade 1 placental changes. Age by LMP: 35 weeks, 2 days. NILA by LMP: 04/09/2022. BIOPHYSICAL PROFILE: Breathing Movements (FBM): 2 Gross Body Movements (GBM): 2 Tone (FT): 2 Amniotic Fluid Volume (AFV): 2 TOTAL SCORE: 8 / 8 US/Biophysical Prof W/O Non Stres IMPRESSION: Normal biophysical profile of 12/27. Electronically Signed: Amilcar Zuniga MD at 15:29 EDT ,
== END | disposition home or self-care (01) ==
PROVIDERS: PCP Student in an Organized Health Care Education/Training Program; Referring Provider Nurse Practitioner Women's Health; Visit Provider Nurse Practitioner Women's Health
DX: O16.3 Unspecified maternal hypertension, third trimester (principal)
CPT/HCPCS: 76819

== ENCOUNTER → 2022-03-11 | Outpatient (CLI) | payer OTHER, SELFPAY ==
--- NOTE | 2022-03-11 08:26 | US_ITS ---
STUDY: OBSTETRICAL ULTRASOUND - BIOPHYSICAL PROFILE REASON FOR EXAM: Female, 26 years old hypertension, gestational diabetes LMP: 07/03/21 PRIOR ULTRASOUND: 03/07/2022 TECHNIQUE: Transabdominal TECHNICAL QUALITY: Adequate. FINDINGS: There is a single intrauterine fetus. The fetus is in a cephalic presentation. There is demonstrated cardiac activity with a heart rate of 158 bpm. There is a normal amniotic fluid volume. The largest amniotic fluid pocket measures 5.2 cm. The amniotic fluid index (NEVILLE) is 16.2 cm. The placenta is posterior in location and is not low lying. There are Grade 1 placental changes. Age by LMP: 35 weeks, 6 days. NILA by LMP: 06/09/2021. BIOPHYSICAL PROFILE: Breathing Movements (FBM): 2 Gross Body Movements (GBM): 2 Tone (FT): 2 Amniotic Fluid Volume (AFV): 2 TOTAL SCORE: 8 / 8 US/Biophysical Prof W/O Non Stres IMPRESSION: Normal biophysical profile of 8/8. Electronically Signed: Gilbert Hoskins MD at 9:42 EDT ,
== END | disposition home or self-care (01) ==
LOC: US 08:25
PROVIDERS: PCP Student in an Organized Health Care Education/Training Program; Referring Provider Nurse Practitioner Women's Health; Visit Provider Nurse Practitioner Women's Health
DX: O16.3 Unspecified maternal hypertension, third trimester (principal); Z3A.35 35 weeks gestation of pregnancy
CPT/HCPCS: 76819

== ENCOUNTER → 2022-03-14 | Outpatient (CLI) | payer OTHER, SELFPAY ==
--- NOTE | 2022-03-14 10:09 | US_ITS ---
STUDY: OBSTETRICAL ULTRASOUND - BIOPHYSICAL PROFILE REASON FOR EXAM: Female, 26 years old well being -- 36 weeks LMP: 07/03/2021. PRIOR ULTRASOUND: Comparison is made with prior sonogram dated 03/11/2022. TECHNIQUE: Transabdominal TECHNICAL QUALITY: Adequate. FINDINGS: There is a single intrauterine fetus. The fetus is in a cephalic presentation. There is demonstrated cardiac activity with a heart rate of 148 bpm. There is a normal amniotic fluid volume. The largest amniotic fluid pocket measures 5.3 cm. The amniotic fluid index (NEVILLE) is 15.9 cm. The placenta is posterior in location and is not low lying. There are Grade 2 placental changes. Age by LMP: 36 weeks, 2 days. NILA by LMP: 04/09/2022. age by prior US: 37 weeks, 2 days. NILA by prior US: 04/09/2022. Gender: Male BIOPHYSICAL PROFILE: Breathing Movements (FBM): 2 Gross Body Movements (GBM): 2 Tone (FT): 2 Amniotic Fluid Volume (AFV): 2 TOTAL SCORE: 8 / 8 US/Biophysical Prof W/O Non Stres IMPRESSION: Normal biophysical profile of /8. Electronically Signed: Amilcar Zuniga MD at 14:36 EDT ,
== END | disposition home or self-care (01) ==
LOC: US 09:57
PROVIDERS: PCP Student in an Organized Health Care Education/Training Program; Referring Provider Obstetrics & Gynecology; Visit Provider Obstetrics & Gynecology
DX: O16.3 Unspecified maternal hypertension, third trimester (principal); Z3A.37 37 weeks gestation of pregnancy
CPT/HCPCS: 76819

== ENCOUNTER → 2022-03-18 | Outpatient (CLI) | payer OTHER, SELFPAY ==
--- NOTE | 2022-03-18 08:04 | US_ITS ---
STUDY: OBSTETRICAL ULTRASOUND - BIOPHYSICAL PROFILE REASON FOR EXAM: Female, 26 years old well being -- 37 weeks LMP: 07/03/2021 PRIOR ULTRASOUND: Comparison is made with prior study 03/14/2022. TECHNIQUE: Transabdominal TECHNICAL QUALITY: Adequate. FINDINGS: There is a single intrauterine fetus. The fetus is in a cephalic presentation. There is demonstrated cardiac activity with a heart rate of 145 bpm. There is a normal amniotic fluid volume. The largest amniotic fluid pocket measures 4.6 cm x 4.2 cm. The amniotic fluid index (NEVILLE) is 14.3 cm. The placenta is anterior in location and is not low lying. There are Grade 2 placental changes. Age by LMP: 36 weeks, 6 days. NILA by LMP: 04/09/2022. BIOPHYSICAL PROFILE: Breathing Movements (FBM): 2 Gross Body Movements (GBM): 2 Tone (FT): 2 Amniotic Fluid Volume (AFV): 2 TOTAL SCORE: 8 / 8 US/Biophysical Prof W/O Non Stres IMPRESSION: Normal biophysical profile of 12/27. Electronically Signed: Amilcar Zuniga MD at 9:07 EDT ,
== END | disposition home or self-care (01) ==
PROVIDERS: PCP Student in an Organized Health Care Education/Training Program; Referring Provider Nurse Practitioner Women's Health; Visit Provider Nurse Practitioner Women's Health
DX: Z34.93 Encounter for supervision of normal pregnancy, unspecified, third trimester (principal); Z3A.36 36 weeks gestation of pregnancy
CPT/HCPCS: 76819; 87077; 87081; 87186

== ENCOUNTER → 2022-03-21 | Outpatient (CLI) | payer OTHER, SELFPAY ==
--- NOTE | 2022-03-21 09:33 | US_ITS ---
STUDY: OBSTETRICAL ULTRASOUND - BIOPHYSICAL PROFILE REASON FOR EXAM: Female, 26 years old wellbeing LMP: 07/03/2021. PRIOR ULTRASOUND: Comparison is made with prior study dated 03/18/2022. TECHNIQUE: Transabdominal TECHNICAL QUALITY: Adequate. FINDINGS: There is a single intrauterine fetus. The fetus is in a cephalic presentation. There is demonstrated cardiac activity with a heart rate of 157 bpm. There is a normal amniotic fluid volume. The largest amniotic fluid pocket measures 4.9 cm x 3 cm. The amniotic fluid index (NEVILLE) is 13.71 cm. The placenta is posterior in location and is not low lying. There are Grade 2 placental changes. Age by LMP: 37 weeks, 2 days. NILA by LMP: 04/09/2022. BIOPHYSICAL PROFILE: Breathing Movements (FBM): 2 Gross Body Movements (GBM): 2 Tone (FT): 2 Amniotic Fluid Volume (AFV): 2 TOTAL SCORE: 8 / 8 US/Biophysical Prof W/O Non Stres IMPRESSION: Normal biophysical profile of 12/27. Electronically Signed: Amilcar Zuniga MD at 15:38 EDT ,
== END | disposition home or self-care (01) ==
LOC: US 09:28
PROVIDERS: PCP Student in an Organized Health Care Education/Training Program; Referring Provider Nurse Practitioner Women's Health; Visit Provider Nurse Practitioner Women's Health
DX: I10 Essential (primary) hypertension (principal)
CPT/HCPCS: 76819

== ENCOUNTER 2022-03-24 15:15 | Inpatient (IN) | payer OTHER, SELFPAY ==
[2022-03-24] VITALS (28 sets, daily range): BP systolic 108–155; BP diastolic 53–94; PULSE 99–130; RESP 12–19; TEMP 36.1–37.1; O2SAT 94–97; BMI 38.9
[2022-03-24 10:43] LABS: Hematocrit 39.6 % (37-47); Hemoglobin 14.3 g/dL (12.0-15.0); Mean Corp Hgb Conc 36.1 g/dL (32-36); Mean Corpuscular Hgb 33.9 pg (27.0-32.0); Mean Corpuscular Volume 93.8 fL (81-99); Mean Platelet Vol. 11.9 fl (6.2-12.0); Platelet Count 177 K/mm3 (150-450); RBC Distribution Width CV 12.4 % (11.6-14.6); RBC Distribution Width SD 42.4 fl (35.1-43.9); Red Blood Count 4.22 M/mm3 (4.2-5.4); White Blood Count 10.1 K/mm3 (4.4-11.0)
[2022-03-24 11:01] LABS: Protein, Urine (Random) 29.3 mg/dL (<11.9); Protein:Creat Ratio 262 mg/g CRE (0-200)
[2022-03-24 11:05] LABS: AST(SGOT) 18 U/L (15-37); Alanine Aminotransfer ALT/SGPT 18 U/L (13-56); Creatinine, Serum 0.46 mg/dL (0.55-1.02); EST Glomerular Filtration Rate 170 mL/min (>60); Est Glom Filt Rate - Afr Amer 206 mL/min (>60); Estimated Creatinine Clearance 177.06 ml/min; Uric Acid 4.6 mg/dL (2.6-6.0)
[2022-03-24] MEDS: Lactated Ringers 1,000 ML 999 ML IV (15:55)
[2022-03-24 16:12] LABS: Absolute Lymphocyte Count 0.91 X10^3/uL (0.83-4.51); Absolute Neutrophil Count 6.5 X10^3/uL (2.0-7.7); Basophil# 0.03 X10^3/uL; Basophil% 0.3 % (0-1); Eosinophils% 1.2 % (0-5); Hematocrit 37.6 % (37-47); Hemoglobin 13.5 g/dL (12.0-15.0); Lymphocyte # 0.91 X10^3/ul (0.83-4.51); Lymphocyte % 10.5 % (19-41); Mean Corp Hgb Conc 35.9 g/dL (32-36); Mean Corpuscular Hgb 33.2 pg (27.0-32.0); Mean Corpuscular Volume 92.4 fL (81-99); Mean Platelet Vol. 11.9 fl (6.2-12.0); Monocyte% 11.5 % (0-10); NRBC Flagged by Analyzer 0 % (0-5); Neutrophil # 6.54 X10^3/uL (2.7-7.7); Neutrophil % 75.3 % (47-70); Platelet Count 188 K/mm3 (150-450); RBC Distribution Width CV 12.3 % (11.6-14.6); Red Blood Count 4.07 M/mm3 (4.2-5.4); White Blood Count 8.7 K/mm3 (4.4-11.0)
--- NOTE | 2022-03-24 16:42 | HP.PCM.OB_ITS ---
HPI - General General Date of Admission: 03/24/22 HPI Narrative ZULLY FINK, is a 26 F who presents for delivery recommended by mfm. she has a history of IUFD at term and gdma2 and chtn on meds. today bps were higher but labs were WNL Maternal Data Information NILA Calculator Estimated Delivery Date Method Current WG Current Estimate 04/09/22 LMP (Certain) 37w 5d PFSH PFS Medical History Asthma delivery delivered Hypertension Infertility Thyroid nodule Home Medications vitamin#30 30 mg iron-10 mg iron-folic acid 1 mg-omg3 capsule 1 cap PO DAILY 09/09/21 [History Last Taken 03/23/22 18:00] nifedipine 20 mg capsule 20 mg PO Q8H #90 caps 11/16/21 [Rx Last Taken 03/24/22 10:05 20 mg] lancets 28 gauge (FreeStyle Lancets) #100 ea 01/22/22 [Rx Last Taken Unknown] blood sugar diagnostic (FreeStyle Lite Strips) #100 ea 01/26/22 [Rx Last Taken Unknown] Humulin N NPH Insulin KwikPen 100 unit/mL (3 mL) subcutaneous (insulin NPH isoph U-100 human) 20 unit (0.2 mL) subcut QAM #15 mL 02/25/22 [Rx Last Taken 03/24/22 09:00] pen needle, diabetic 32 gauge x 5/32 (BD Ultra-Fine Marcia Pen Needle) #50 ea 02/25/22 [Rx Last Taken Unknown] Allergy/AdvReac Type Severity Reaction Status Date / Time milk [dairy] Allergy Other Verified 03/24/22 10:26 Latex, Natural Rubber AdvReac Severe hives and Verified 03/24/22 09:42 throat swells Family History Father Diabetes Surgical History History of appendectomy History of surgery [place] teeth extracted Social History number of children: 0 current occupational status: employed current occupation: [employer] Smoking Status: Never smoker alcohol intake: current alcohol intake frequency: holidays/special occasions only details: pre substance use type: does not use caffeine: Yes seatbelt use: always do you feel safe at home: Yes additional social history: [employer] History 2 Elective abortions 0 Hx Para 0 Spontaneous abortions 0 Hx # Term Pregnancies 1 Ectopic pregnancies 0 Hx # Pregnancies 0 Multiple births 0 # of living children 0 Past Pregnancies Del. Date Name GA/Weeks Outcome Route Bth Weight [facility] girl 42 still 11 lbs Female 13 + WC Hayley Delivery Date: 10/16/20 Last Updated by: Keila Dee 42 wk demise post maturity, LTCS for AOD 8cm, severe preeclampsis Visit Details Expected Delivery Route/Plan RLTCS vs TOLAC if spontaneous labor patient counseled regarding risks/benefits of trial of labor versus repeat . ACOG/uptodate education given to patient. [] % likelihood of success per calculator TOLAC consent form signed: [] Plans Covid status: discussed Flu vaccine: declined Tdap vaccine: declined Rhogam: na LARC form signed: yes movement and labor precautions reviewed. Problem list reviewed and updated with the most current plan of care details and appropriate orders placed. Relevant counseling for the gestational age provided. Continue routine care and follow up unless otherwise noted in visit notes/problem list details OB Flowsheet Initial Weight: Not Recorded Date -?-?-?-?-?-?-?-?-?-?-?-?- EGA Weight BP Urine Prot -?-?-?-?-?-?-?-?-?-?-?-?- Glucose FHR FuHt Pres Dilation -?-?-?-?-?-?-?-?-?-?-?-?- Effaced St Visit Note 09/09/21 -?-?-?-?-?-?-?-?-?-?-?-?- 9w 5d 207 lb 124/90 -?-?-?-?-?-?-?-?-?-?-?-?- 160 -?-?-?-?-?-?-?-?-?-?-?-?- SM- CRL cons wit h LMP. home bps reviewed. 10/08/21 -?-?-?-?-?-?-?-?-?-?-?-?- 13w 6d 211 lb 4 oz 160/80 Nega tive -?-?-?-?-?-?-?-?-?-?-?-?- Negative 163 -?-?-?-?-?-?-?-?-?-?-?-?- JV- bp elevated today but pt states that work is very stressful. She wants to check at home and call us. bringing back in one week for nurse bp check. starting baby asa. 10/15/21 -?-?-?-?-?-?-?-?-?-?-?-?- 14w 6d 212 lb 4 oz 158/72 160/74 148/70 Negative -?-?-?-?-?-?-?-?-?-?-?-?- Negative -?-?-?-?-?-?-?-?-?-?-?-?- JV- pt returned today for bp check only and was elevated as high as 160/74, lowest wa 148/70. starting procardia 30 xl 10/28/21 -?-?-?-?-?-?-?-?-?-?--?-?- 16w 5d 217 lb 166/68 146/70 Negative -?-?-?-?-?-?-?-?-?-?-?-?- Negative 157 -?-?-?-?-?-?-?-?-?-?-?-?- MH-No VB or cram ping. Denies headache. States BPs WNL at home. Increase procardia to 60mg qd, RTO 1 week for BP check and bring home cuff. Anatomy US 11/0911/30/21 -?-?-?-?-?-?-?-?-?-?-?-?- 21w 3d 228 lb 119/68 -?-?-?-?-?-?-?-?-?-?-?-?- 150 -?-?-?-?-?-?-?-?-?-?-?-?- SM- no vb lof go od fm no regular ctx 12/23/21 -?-?-?-?-?-?-?-?-?-?-?-?- 24w 5d 234 lb 156/72 Negative -?-?-?-?-?-?-?-?-?-?-?-?- Negative 145 -?-?-?-?-?-?-?-?-?-?-?-?- JV- plan to swit ch back to procardia 20 mg tid. pt was having side effects of dizziness and fatigue with the 60 xl. overdue for growth scan. message sent to the [facility] to get scheduled monthly with mfm. 12/31/21 -?-?-?-?-?-?-?-?-?-?--?-?- 25w 6d 236 lb 111/65 -?-?-?-?-?-?-?-?-?-?-?-?- 145 -?-?-?-?-?-?-?-?-?-?-?-?- SM- no vb lof go od fm no regualr ctx 01/19/22 -?-?-?-?-?-?-?-?-?-?-?-?- 28w 4d 237 lb 130/76 Negative -?-?-?-?-?-?-?-?-?-?-?-?- Negative 142 32 -?-?-?-?-?-?-?-?-?-?-?-?- JV- pt states th at glucose levels are normal. she did not take her bp medicaiton today. she states that she is still taking it as needed. c/o burning when urinates but thinks also could be yeast. on exam there is only physioloic disharge present. pt will take monistat in meantime and give urine sample. Culture vaginal swab sent. 02/01/22 -?-?-?-?-?-?-?-?-?-?-?-?- 30w 3d 237 lb 8 oz 139/77 Nega tive -?-?-?-?-?-?-?-?-?-?-?-?- Negative 140 33 -?-?-?-?-?-?-?-?-?-?-?-?- SM- no vb lof go od fm no regular ctx BS controlled 02/14/22 -?-?-?-?-?-?-?-?-?-?-?-?- 32w 2d 239 lb 127/81 Negative -?-?-?-?-?-?-?-?-?-?-?-?- Negative 140 -?-?-?-?-?-?-?-?-?-?-?-?- SM- no vb lof go od fm nro egular ctx BS controlled 02/22/22 -?-?-?-?-?-?-?-?-?-?-?-?- 33w 3d 244 lb 6 oz 132/86 Nega tive -?-?-?-?-?-?-?-?-?-?-?-?- Negative 140 34 -?-?-?-?-?-?-?-?-?-?-?-?- MH-No VB, LOF. G ood FM. Reactive NST. 03/04/22 -?-?-?-?-?-?-?-?-?-?-?-?- 34w 6d 241 lb 4 oz 126/67 Nega tive -?-?-?-?-?-?-?-?-?-?-?-?- Negative 158 38 -?-?-?-?-?-?-?-?-?-?-?-?- JV- bpp 12/27 toda y. growth was done Monday with MFM and report is pending. pt states baby is 6 lbs already. may need to consider bumping up section. will discuss with MFM 03/11/22 -?-?-?-?-?-?-?-?-?-?-?-?- 35w 6d 244 lb 8 oz 131/64 Nega tive -?-?-?-?-?-?-?--?-?-?-?-?- Negative 151 40 -?-?-?-?-?-?-?-?-?-?-?-?- JV- pt unsure if she missed her BPP. sending to ultrasound now and will do her gbs next visit. bp controlled. glucose controlled. JV- pt unsure if she missed her BPP. sending to ultrasound now and will do her gbs next visit. bp controlled. glucose controlled. Rpt growth is on Mar 24 or (per pt) meausuring large 03/18/22 -?-?-?-?-?-?-?-?-?-?-?-?- 36w 6d 246 lb 135/84 -?-?-?-?-?-?-?-?-?-?-?-?- 150 40 -?-?-?-?-?-?-?-?-?-?-?-?- SM- bps WNL, BS stable no vb lof good fm no regular ctx no GARIBAY BV 03/24/22 -?-?-?-?-?-?-?-?-?-?-?-?- 37w 5d 250 lb 135/92 143/93 Negative -?-?-?-?-?-?-?-?-?-?-?-?- Negative 154 40 -?-?-?-?-?-?-?-?-?-?-?-?- JV- pt states th at she did not take her bp meds and did not sleep well and also was running late. 03/24/22 -?-?-?-?-?-?-?-?-?-?-?-?- 37w 5d 248 lb 7.375 oz 134/ 60 138/63 138/67 141/74 139/75 137/75 151/94 -?-?-?-?-?-?-?-?-?-?-?-?- -?-?-?-?-?--?-?-?-?-?-?-?- NST FHR Rate Baby A Baseline: 130 Variability:: Moderate Accelerations:: 15 x 15 Decelerations:: None NST Reactive:: Yes FHR Category:: Category I Uterine Activity:: irregular ROS Constitutional Constitutional: Reports systems reviewed and no addt'l complaints, except as doc umented Eyes Eyes: Denies change in vision ENT HEENT: Reports systems reviewed and no addt'l complaints, except as documented; Denies headache(s) Cardiovascular Cardiovascular: Reports systems reviewed and no addt'l complaints, except as documented; Denies chest pain or dyspnea Respiratory/Chest Respiratory/Chest: Reports systems reviewed and no addt'l complaints, except as documented Gastrointestinal Gastrointestinal: Reports systems reviewed and no addt'l complaints, except as documented; Denies abdominal pain Genitourinary Genitourinary: Reports systems reviewed and no addt'l complaints, except as documented, contractions Details: present (irregular) and movement Details: present; Denies dysuria or genital lesions Musculoskeletal Musculoskeletal: Reports systems reviewed and no addt'l complaints, except as documented Neurologic Neurologic: Reports systems reviewed and no addt'l complaints, except as documented Endocrine Endocrinology: Reports systems reviewed and no addt'l complaints, except as documented Vital Signs Vital Signs Vital Signs: 03/24/22 10:28 03/24/22 10:28 03/24/22 10:28 Temperature Temperature Source Temporal Pulse Rate 130 H Blood Pressure 134/60 H BP Systolic 134 BP Diastolic 60 Pulse Ox 03/24/22 10:28 03/24/22 10:39 03/24/22 10:39 Temperature 98.4 F Temperature Source Pulse Rate 120 H Blood Pressure 138/63 H BP Systolic 138 BP Diastolic 63 Pulse Ox 03/24/22 10:46 03/24/22 10:46 03/24/22 10:49 Temperature Temperature Source Pulse Rate 117 H Blood Pressure 138/67 H BP Systolic 138 BP Diastolic 67 Pulse Ox 95 03/24/22 10:49 03/24/22 10:51 03/24/22 10:51 Temperature Temperature Source Pulse Rate 118 H 110 H Blood Pressure BP Systolic BP Diastolic Pulse Ox 95 03/24/22 10:52 03/24/22 10:52 03/24/22 10:56 Temperature Temperature Source Pulse Rate 112 H 113 H Blood Pressure BP Systolic BP Diastolic Pulse Ox 94 03/24/22 10:56 03/24/22 11:00 03/24/22 11:01 Temperature Temperature Source Pulse Rate 114 H Blood Pressure 141/74 H BP Systolic 141 BP Diastolic 74 Pulse Ox 96 03/24/22 11:01 03/24/22 11:03 03/24/22 11:03 Temperature Temperature Source Pulse Rate 114 H Blood Pressure BP Systolic BP Diastolic Pulse Ox 95 94 03/24/22 11:06 03/24/22 11:06 03/24/22 11:08 Temperature Temperature Source Pulse Rate 112 H Blood Pressure 139/75 H BP Systolic 139 BP Diastolic 75 Pulse Ox 94 03/24/22 11:08 03/24/22 11:11 03/24/22 11:11 Temperature Temperature Source Pulse Rate 108 H 109 H Blood Pressure BP Systolic BP Diastolic Pulse Ox 96 03/24/22 11:11 03/24/22 11:11 03/24/22 11:16 Temperature Temperature Source Pulse Rate 114 H 107 H Blood Pressure BP Systolic BP Diastolic Pulse Ox 94 03/24/22 11:16 03/24/22 11:18 03/24/22 11:18 Temperature Temperature Source Pulse Rate 106 H Blood Pressure BP Systolic BP Diastolic Pulse Ox 96 94 03/24/22 11:19 03/24/22 11:19 03/24/22 10:28 Temperature Temperature Source Temporal Pulse Rate 105 H Blood Pressure 137/75 H BP Systolic 137 BP Diastolic 75 Pulse Ox 03/24/22 10:28 03/24/22 16:06 03/24/22 16:06 Temperature 98.4 F Temperature Source Pulse Rate 101 H Blood Pressure 151/94 H BP Systolic 151 BP Diastolic 94 Pulse Ox 03/24/22 16:06 03/24/22 16:07 Temperature 98.4 F Temperature Source Pulse Rate Blood Pressure BP Systolic BP Diastolic Pulse Ox 97 Weight Weight: 248 lb 7.375 oz Body Mass Index (BMI) 38.9 Physical Exam Const alert, oriented x3, no apparent distress and healthy appearing HEENT normocephalic and moist oral mucous membranes Head and Scalp: atraumatic Neck full ROM, no lymphadenopathy, supple and thyroid normal General: trachea midline Lymph Lymphatic: no lymphadenopathy noted Chest inspection of chest normal Resp normal respiratory effort Cardio regular rate GI normal to inspection, nondistended, normoactive bowel sounds, soft to palpation and non-tender Inspection: gravid external exam normal Manual OB Exam: estimated gestational size appropriate, presentation cephalic, dilated, effaced and station Extremity normal to inspection General Extremity: Negative for edema Skin no rashes or lesions noted Neuro no focal motor deficits and deep tendon reflexes 2+ bilaterally Motor Exam: strength 5/5 throughout and clonus absent Psych mental status grossly normal Labs Labs Labs: Blood Type O POSITIVE Antibody Screen NEGATIVE Hct 37.6 % (37-47) Hgb 13.5 g/dL (12.0-15.0) Syphilis Total Ab Non-reactive Rubella IgG Antibody Reactive (Nonreactive) Hep Bs Antigen Non-Reactive (Nonreactive) Chlamydia DNA (CHRISTAL) Negative (Negative) Neisseria gonorrhoeae DNA (CHRISTAL) Negative (Negative) HIV 1&2 Antibody Non-Reactive (Nonreactive) Glucose 1 Hr 50 gm 193 mg/dL (70-140) H Group B Strep DNA Negative (Negative) Rhogam given: No Miscellaneous Test Assessment & Plan (1) GBS (group B Streptococcus carrier), +RV culture, currently : COMMENT: PCN during labor (2) Gestational diabetes: COMMENT: started insulin 03/04/22 20 units NPH am. (3) Chronic hypertension: COMMENT: procarida 20 tid serial growths q 4 weeks kick counts 32 weeks nst weekly, bpp/idris weekly. 06/04 BPP nl, 03/11/22 nl BPP. 03/14 nl BPP. (4) Previous delivery affecting : COMMENT: previous AOD at 42 with over 11 lb IUFD. recommended by [facility] for d karoline today 03/24 (5) History of loss: COMMENT: 42 week severe preeclampsia. increased testing 3rd trimester. (6) : QUALIFIERS: Weeks of gestation: 37 weeks Qualified Code(s): Z3A.37 - 37 weeks gestation of COMMENT: carrier and genetic screening discussed, sickle cell negative. anatomy reveiwed. (7) Supervision of high-risk : COMMENT: PRR NILA 04/09/22 khoa Morris (dec) Daniel (8) Obesity affecting : COMMENT: 1 TM GCT, encouraged healthy weight gain PLAN: Plan plan RLTCS
--- NOTE | 2022-03-24 16:45 | OP.PCM_ITS ---
Assessment & Plan (1) delivery delivered: COMMENT: LTCS 37 khoa Palomares GDMA2 (2) GBS (group B Streptococcus carrier), +RV culture, currently : COMMENT: PCN during labor (3) Gestational diabetes: COMMENT: started insulin 03/04/22 20 units NPH am. (4) Chronic hypertension: COMMENT: procarida 20 tid serial growths q 4 weeks kick counts 32 weeks nst weekly, bpp/idris weekly. 06/04 BPP nl, 03/11/22 nl BPP. 03/14 nl BPP. (5) History of loss: COMMENT: 42 week severe preeclampsia. increased testing 3rd trimester. (6) Previous delivery affecting : COMMENT: previous AOD at 42 with over 11 lb IUFD. recommended by [facility] for delivery today 03/24 (7) Obesity affecting : COMMENT: 1 TM GCT, encouraged healthy weight gain (8) Supervision of high-risk : COMMENT: PRR NILA 04/09/22 khoa Palomares CHERIE Morris (dec) Daniel (9) : QUALIFIERS: Weeks of gestation: 37 weeks Qualified Code(s): Z3A.37 - 37 weeks gestation of COMMENT: carrier and genetic screening discussed, sickle cell negative. anatomy reveiwed. (10) COVID-19 affecting , antepartum: COMMENT: precautions taken Maternal Data Information NILA Calculator Estimated Delivery Date Method Current WG Current Estimate 04/09/22 LMP (Certain) 37w 5d Final NILA Source: LMP Details Operative Information Date of Procedure: 03/24/22 Pre-Operative Diagnosis: Previous gdma2 chtn with meds h/o iufd recommend 37 week by [facility] delivery Post-Operative Diagnosis: same Indications for : Repeat Elective Classification: IVA Procedure Type: low transverse geek squad agent #1: Rene Camarillo Type of Anesthesia: Spinal Special Medications: none Antibiotic Given: Ancef 2 grams IV x1 Drain: Blue to straight drain Estimated Blood Loss: 800 Fluids Replaced: crystalloid Findings Description of Procedure: spinal unable to be placed and therefore epidural placed. Blue catheter was placed. The patient was placed in the dorsal supine position with leftward tilt. Patient was prepped and draped in the normal sterile fashion. Pfannenstiel skin incision was made with the scalpel and carried through to the underlying layer of fascia with the scalpel. Fascia was nicked in the midline and the incision extended laterally. The rectus bellies were dissected off superiorly and inferiorly with out complication both sharply and bluntly. The peritoneum was entered digitally. The incision was stretched and a low transverse uterine incision was made with the scalpel. The infant's head was delivered atraumatically followed by the anterior and posterior shoulders without complication the rest of the infant delivered. The cord was clamped and cut and the was handed off to awaiting nurse. The placenta was delivered spontaneously immediately following and was noted to be intact and have a three- vessel cord. The uterus was exteriorized cleared of all clots and debris, and the incision was closed in a double layer closure using #1 Monocryl. The ovaries and fallopian tubes were noted to be within normal limits. The uterus was returned to the maternal abdomen and gutters were cleared of all clots and debris. The peritoneum was closed with 3-0 Monocryl in a running fashion. Gloves were changed prior to fascial closure. Fascia was closed with 0 PDS in a running fashion. Subcutaneous tissue was copiously irrigated and the skin was closed with 3-0 Monocryl in a subcuticular fashion. Mepilex dressing was applied without complication. Patient was taken to recovery in stable condition. It was discussed with the patient that based on the clinical information obtained during this encounter, combined with her history, at this time I would recommend cesareans for future deliveries if further pregnancies are desired. Amniotic Membrane Rupture Type: Artificial Amniotic Fluid Description: Clear Placenta Disposition: [facility] Cord Vessel Description: 3 Vessels Cord Entanglement: None Delayed Cord Clamping: Yes Complications Risks of Surgery Discussed w/Patient: Bleeding, Infection, Need for Future C- Sections and Injury to surrounding structure(s) including bowel and bladder Vaginal Delivery Complication Complications: None Admit VTE Documentation VTE Present on Admission: No VTE Mechan Device Prophylaxis: SCD's Procedures Urinary/Genital [id number]: 75086 Delivery [facility]
--- NOTE | 2022-03-24 16:46 | DCINST_ITS ---
Discharge Instructions Diet Discharge Diet: No restrictions Activity Discharge Activity: Return to Normal Activity, May Drive (when pain free and off narcotic pain meds), May Shower and May Take a Tub Bath (in 4 weeks) May resume sexual activity in: 6 weeks Weight Bearing Status: Full weight bearing Lifting Restrictions: under 30 lbs for 6 weeks Dressing / Incision Call your doctor if your incision/area has: Continuous Slow Oozing, Sudden Increased Bleeding, Increased Pain/ Swelling, Increased Redness, Foul Smelling Discharge and - Call your doctor if you observe: Fever of 101 or Higher, Using more than 1 pad per hour, Shortness of breath, Chest pain and Uncontrolled pain Suture Line Care: Avoid Pulling/Pushing and Avoid Pinching/Bending Change Dressing in: 1 week (leave open to air after removed) Remove Dressing in: 1 week (if present) Cleanse incision/area with: Soap & Water and Keep Dressing Clean & Dry Follow Up Care Please Follow Up With: Kaitlin Hardy MD When: Call to make an appointment with your doctor for a postop visit in 2 and 6 weeks. Test Results: Test results from this visit will be discussed in further detail at your follow- up appointment, if applicable. Discharge Plan Admission Admit Date/Time: 03/24/22 15:15 Attending Provider: Meenakshi Nick Primary Care Provider: Reyes Chaney Instructions Patient Instructions: Kick Counts, ED False Labor, OB Triage: Return to Hospital or Notify Physician if you Experience: Discharge Orders/Prescriptions Prescriptions: New oxycodone-acetaminophen [Percocet] 5-325 mg tablet 1 tab PO Q6H PRN (Reason: pain) 7 Days Qty: 20 0RF naproxen [naproxen] 500 mg tablet 500 mg PO BID PRN PRN (Reason: Pain) Qty: 30 1RF Discontinued Humulin N NPH Insulin KwikPen 100 unit/mL (3 mL) insulin pen 20 unit subcut QAM Qty: 15 1RF No Action PNV #[id number] 30 mg iron-10 mg iron-1 mg capsule 1 cap PO DAILY nifedipine 20 mg capsule 20 mg PO Q8H Qty: 90 8RF (DME) lancets [FreeStyle Lancets] 28 gauge misc See Rx Instructions .Route Qty: 100 6RF Rx Instructions: 4x/day (DME) FreeStyle Lite Strips Strip See Rx Instructions .Route Qty: 100 6RF Rx Instructions: 5x/day (DME) pen needle, diabetic [BD Ultra-Fine Marcia Pen Needle] 32 gauge x 5/32 needle See Rx Instructions .ROUTE .MEDSUPPLY Qty: 50 1RF Rx Instructions: As directed Referrals / Follow Up: Reyes Chaney DO [Primary Care Provider] - Disposition Disposition (needs filled in before D/C Order can be placed): Home, Self Care
[2022-03-24] MEDS: Acetaminophen 500 MG Tablet 1000 MG PO ×2 (17:02→22:51)
[2022-03-24] MEDS: Lactated Ringers 1,000 ML 150 ML IV (17:06)
[2022-03-24 17:11] LABS: Bedside Glucose 72 mg/dL (74-106)
[2022-03-24] MEDS: Sodium Citrate/Citric Acid 30 ML UDC PO (17:51)
[2022-03-24] MEDS: Cefazolin 2 GM in 0.9% Normal Saline 100 ML IV (18:30)
[2022-03-24] MEDS: Oxytocin 15 Units/NS 250ml 15 UNITS/250 ML IV.SOLN 83 UNITS IV (20:15)
[2022-03-24] MEDS: Ketorolac 30 MG/ML Syringe IV (21:24)
[2022-03-24 21:40] LABS: Bedside Glucose 91 mg/dL (74-106)
[2022-03-24] MEDS: DiphenhydrAMINE 25 MG Capsule PO (21:50)
[2022-03-24] MEDS: NIFEdipine 10 MG Capsule 20 MG PO (22:52)
[2022-03-24] MEDS: Lactated Ringers 1,000 ML 100 ML IV (23:27)
--- NOTE | 2022-03-24 23:38 | NURSING ---
This RN removed epidural catheter. Blue tip intact. Small amount of bleeding from epidural site, resolved with pressure.
[2022-03-25] VITALS (13 sets, daily range): BP systolic 133–144; BP diastolic 73–87; PULSE 86–107; RESP 16–18; TEMP 36.2–36.8; O2SAT 95–98
[2022-03-25] MEDS: Ketorolac 30 MG/ML Syringe IV ×3 (03:19→15:24)
[2022-03-25] MEDS: Acetaminophen 500 MG Tablet 1000 MG PO ×3 (05:34→18:05)
[2022-03-25 05:50] LABS: Hematocrit 36.1 % (37-47); Hemoglobin 12.9 g/dL (12.0-15.0); Mean Corp Hgb Conc 35.7 g/dL (32-36); Mean Corpuscular Hgb 33.9 pg (27.0-32.0); Mean Corpuscular Volume 94.8 fL (81-99); Mean Platelet Vol. 11.4 fl (6.2-12.0); Platelet Count 172 K/mm3 (150-450); RBC Distribution Width CV 12.3 % (11.6-14.6); RBC Distribution Width SD 42.4 fl (35.1-43.9); Red Blood Count 3.81 M/mm3 (4.2-5.4); White Blood Count 10.1 K/mm3 (4.4-11.0)
[2022-03-25 06:05] LABS: Bedside Glucose 117 mg/dL (74-106)
[2022-03-25] MEDS: NIFEdipine 10 MG Capsule 20 MG PO ×2 (06:25→14:33)
[2022-03-25] MEDS: Enoxaparin 40 MG/0.4 ML Syringe SC (08:15)
[2022-03-25] MEDS: 0.9% Saline Lock 10 ML Syringe IV ×2 (09:17→15:23)
--- NOTE | 2022-03-25 09:28 | PN.OBGYN_ITS ---
Subjective Subjective Patient doing well without complaints. Tolerating PO. Ambulating and voiding without difficulty. feeding well. Denies chest pain, shortness of breath, calf pain/swelling, fevers, chills, lightheadedness. Objective Data Objective Data Vital Signs: Vital Signs Temp Pulse Resp BP Pulse Ox O2 Del Method 98.3 F 89 16 144/87 H 97 Room Air 03/25/22 08:21 03/25/22 08:21 03/25/22 08:21 03/25/22 08:21 03/25/22 08:21 03/25/22 08:21 Oxygen Delivery Method Room Air Weight: 248 lb 7.375 oz Body Mass Index (BMI) 38.9 Intake & Output: Intake and Output for Last 24 Hours 03/23/22 03/24/22 03/25/22 23:59 23:59 23:59 Intake Total 2225 / 2225 463.33 / 463.33 Output Total 300 / 300 700 / 700 Balance 1925 / 1925 -236.67 / -236.67 Lab / Micro Data Result Diagrams: 03/25/22 05:40 03/24/22 10:20 Labs: Laboratory Results - last 24 hr 03/24/22 10:20: WBC 10.1, RBC 4.22, Hgb 14.3, Hct 39.6, MCV 93.8, MCH 33.9 H, MCHC 36.1 H, RDW Std Deviation 42.4, RDW Coeff of Armani 12.4, Plt Count 177, MPV 11.9 03/24/22 10:20: U Random Total Protein 29.3 H, Urine Creatinine 112.00, Protein/Creatinin Ratio 262 H 03/24/22 10:20: Creatinine 0.46 L, Estim Creat Clear Calc 177.06, Est GFR (MDRD) Af Amer 206, Est GFR (MDRD) Non-Af 170, Uric Acid 4.6, AST 18, ALT 18 03/24/22 15:55: WBC 8.7, RBC 4.07 L, Hgb 13.5, Hct 37.6, MCV 92.4, MCH 33.2 H, MCHC 35.9, RDW Std Deviation 41.0, RDW Coeff of Armani 12.3, Plt Count 188, MPV 11.9, Immature Gran % (Auto) 1.200 H, Neut % (Auto) 75.3 H, Lymph % (Auto) 10.5 L, [place] % (Auto) 11.5 H, Eos % (Auto) 1.2, Baso % (Auto) 0.3, Absolute Neuts (auto) 6.5, Absolute Lymphs (auto) 0.91, Nucleated RBC % 0 03/24/22 15:55: Blood Type O POSITIVE, Antibody Screen NEGATIVE 03/24/22 16:38: POC Glucose 72 L 03/24/22 17:00: COVID-19 (CHRISTAL) Detected 03/24/22 21:13: POC Glucose 91 03/25/22 05:40: WBC 10.1, RBC 3.81 L, Hgb 12.9, Hct 36.1 L, MCV 94.8, MCH 33.9 H , MCHC 35.7, RDW Std Deviation 42.4, RDW Coeff of Armani 12.3, Plt Count 172, MPV 11.4 03/25/22 05:40: POC Glucose 117 H Micro: Microbiology 03/24/22 16:00 Nasal Secretion SARS-CoV-2 Antigen (Rapid) - Final SARS-CoV-2 (COVID 19) ROS Constitutional Constitutional: Reports systems reviewed and no addt'l complaints, except as documented Cardiovascular Cardiovascular: Reports systems reviewed and no addt'l complaints, except as documented Respiratory/Chest Respiratory/Chest: Reports systems reviewed and no addt'l complaints, except as documented Gastrointestinal Gastrointestinal: Reports systems reviewed and no addt'l complaints, except as documented Physical Exam Const alert, oriented x3 and no apparent distress HEENT Head and Scalp: atraumatic Resp normal respiratory effort GI soft to palpation and non-tender Inspection: incision intact, healing well and drainage (none) Bimanual Exam - Vag & Uterus: uterus non-tender Uterus Palpation: uterus fundus firm (below Umbilicus) Assessment & Plan (1) COVID-19 affecting , antepartum: COMMENT: precautions taken (2) delivery delivered: COMMENT: LTCS 37 boy Jelani GDMA2 (3) Gestational diabetes: COMMENT: FBS (4) Chronic hypertension: COMMENT: procarida 20 tid PLAN: Plan s/p LTCS PPD # 1 1. routine post care 2. breast feeding- support given 3. rh positive 4. rubella immune
--- NOTE | 2022-03-25 09:52 | NURSING ---
This RN verbally updated Dr. Hardy on fasting blood sugar of 117. Dr. Hardy talked to pt. about blood sugars and wants ordered ac and hs blood sugars with sliding scale.
[2022-03-25] MEDS: Senna/Docusate Sodium 1 Tablet PO (11:40)
[2022-03-25 12:16] LABS: Bedside Glucose 100 mg/dL (74-106)
[2022-03-25 17:31] LABS: Bedside Glucose 91 mg/dL (74-106)
== END 2022-03-25 21:37 | disposition home or self-care (01) | DRG 787 ==
LOC: WPOUT 15:21 → WP 15:21
PROVIDERS: Obstetrics & Gynecology; Admitting Provider Obstetrics & Gynecology; PCP Student in an Organized Health Care Education/Training Program; Visit Provider Obstetrics & Gynecology
DX: O34.219 Maternal care for unspecified type scar from previous cesarean delivery (principal); O10.02 Pre-existing essential hypertension complicating childbirth; Z79.4 Long term (current) use of insulin; J45.909 Unspecified asthma, uncomplicated; O99.824 Streptococcus B carrier state complicating childbirth; O24.424 Gestational diabetes mellitus in childbirth, insulin controlled; Z3A.37 37 weeks gestation of pregnancy; Z37.0 Single live birth; O99.52 Diseases of the respiratory system complicating childbirth; O99.214 Obesity complicating childbirth
CPT/HCPCS: 59025; 59050; 82565; 82570; 82962; 84156; 84450; 84460; 84550; 85025; 85027; 86850; 86900; 86901; 87426; 87635; 99218; J7120; A4216; G0378; J2405; U0003; U0005

== ENCOUNTER → 2023-12-08 | Outpatient (CLI) | payer BC, SELFPAY ==
--- NOTE | 2023-12-08 12:44 | US_ITS ---
STUDY: THYROID ULTRASOUND REASON FOR EXAM: Female, 28 years old. Thyroid nodules. TECHNIQUE: Ultrasound evaluation of the thyroid was performed with real-time and static ryan-scale imaging. COMPARISON: Comparison is made with prior study January 12, 2022. FINDINGS: RIGHT LOBE: The right lobe of the thyroid gland is mildly enlarged and measures 5.1 cm x 1.7 cm x 1.8 cm. There is a several small cystic nodules are seen. The largest measures 4 mm x 3 mm x 2 mm. This is in the midpole.. There are no demonstrated solid, cystic or complex lesions. LEFT LOBE: The left lobe of the thyroid gland measures 4.6 cm x 1.9 cm x 1.1 cm. There is a homogeneous echotexture. There is a 6 mm x 4 mm x 4 mm hypoechoic solid nodule in the lower pole. ISTHMUS: The isthmus measures 3 mm. The regional lymph nodes are normal. US/Thyroid IMPRESSION: Small cystic changes are seen in the right lobe of thyroid. 6 mm x 4 mm x 4 mm hypoechoic solid nodule in the lower pole of the left lobe of the thyroid. Electronically Signed: Amilcar Zuniga MD at 14:30 EDT ,
== END | disposition home or self-care (01) ==
PROVIDERS: PCP Student in an Organized Health Care Education/Training Program; Referring Provider Surgery; Visit Provider Surgery
DX: E04.1 Nontoxic single thyroid nodule (principal)
CPT/HCPCS: 76536

== ENCOUNTER → 2023-12-14 | Outpatient (CLI) | payer BC, SELFPAY | END | disposition home or self-care (01) | LOC: LABSPEC 16:47 | PROVIDERS: PCP Student in an Organized Health Care Education/Training Program; Referring Provider Nurse Practitioner Women's Health; Visit Provider Nurse Practitioner Women's Health | DX: N89.8 Other specified noninflammatory disorders of vagina (principal) | CPT/HCPCS: 87070; 87077; 87186; 87205 ==

== ENCOUNTER → 2024-02-08 | Outpatient (CLI) | payer BC, SELFPAY | END | disposition home or self-care (01) | LOC: LABSPEC 12:15 | PROVIDERS: PCP Student in an Organized Health Care Education/Training Program; Referring Provider Nurse Practitioner Family; Visit Provider Nurse Practitioner Family | DX: N76.0 Acute vaginitis (principal) | CPT/HCPCS: 87070; 87205 ==